=== PATIENT | female | born 1940 | race Caucasian/White ===

== ENCOUNTER 2023-08-09 00:40 | Day surgery (SDC) | payer MEDICARE, SELFPAY ==
[2023-08-07 10:11] VITALS: BMI 17.2
--- NOTE | 2023-08-07 11:50 | SUR.PREOP ---
Patient called regarding upcoming procedure. Message left on pt's voicemail regarding appointment times.
[2023-08-09 06:29] VITALS: BP 133/58; PULSE 84; RESP 19; TEMP 36.5; O2SAT 96
[2023-08-09] MEDS: LACTATED RINGERS 1,000 ML 150 ML IV CONT (06:41)
--- NOTE | 2023-08-09 07:12 | P.PNAN_ITS ---
Anes - Initial Pre Proc Eval Procedure: Operation Date: 08/09/23 07:30 Proposed Procedures p Esophagogastroduodenoscopy - Lencho Sanchez MD Date/Time: 08/09/23 07:12 Surgeon: Lencho Sanchez MD Pre Op Diagnosis: Dysphagia, unspecified Patient Data Age: 83 Gender: F Height: 1.65 m Weight: 49 kg Last Vital Signs Temp 97.7 F 08/09/23 06:29 Pulse 84 08/09/23 06:29 Resp 19 08/09/23 06:29 BP 133/58 L 08/09/23 06:29 Pulse Ox 96 08/09/23 06:29 O2 Del Method Room Air 08/09/23 06:29 Allergies Allergy/AdvReac Type Severity Reaction Status Date / Time ibuprofen Allergy Severe IMMEDIATE Verified 08/09/23 06:28 SWELLING Home Medications Medication Instructions Recorded Confirmed Type levothyroxine 100 mcg tablet 100 mcg PO DAILY 08/01/23 08/07/23 History liothyronine 5 mcg tablet (Cytomel) 15 mcg PO DAILY 08/01/23 08/07/23 History pantoprazole 40 mg tablet,delayed See Rx Instructions .Route 08/01/23 08/07/23 Rx release .COMPLEX #90 tabs midodrine 2.5 mg tablet 2.5 mg PO BID 08/07/23 08/07/23 History Patient hx anesthesia problems: none Family hx anesthesia problems: none Results Review: All pre-operative results and documents have been reviewed as part of the pre- operative evaluation. [facility] Past Medical History Medical History Other fatigue Other primary ovarian failure Social History Social History Smoking status: Never smoker Alcohol intake: never Substance use: never Substance use type: does not use Lack of Transportation: No Lack of Food: Never True Current Housing: I Have Housing Concerned About Future Housing: No Difficulty Paying Gas/Electric Bills: No Difficulty Paying for Meds: No Currently Unemployed: No Difficulty w/ Childcare or Family Care: No Living arrangements: with family Occupation/Education: retired Gender identity (if verbalized by the patient): Female Spiritual care concerns: No Anes - Eval Final PreProcedure Day of Procedure 08/09/23 07:12 Patient weight: normal Heart: regular rate and rhythm Lungs: clear to auscultation Airway: Mallampati scale class III Neurological: alert and oriented Last oral intake: >/= 8 hours ASA classification: III Emergent: no Anesthetic plan: proceed Anesthesia type and monitoring: general GIVS and standard monitoring Results Review: All pre-operative results and documents have been reviewed as part of the pre- operative evaluation. Informed Consent: The patient's anesthetic plan and its attendant risks and benefits were discussed with the patient/family/POA. Questions were solicited and answers provided to the satisfaction of the patient/family/POA.
--- NOTE | 2023-08-09 07:19 | PM.HPGS ---
History of Present Illness History of Present Illness Consent: Risks, benefits, and alternatives have been discussed and questions answered. Patient agrees to proceed with procedure. Chief complaint: Dysphagia, unspecified Narrative: Emma Villalobos is a 83 year old female here for EGD, had gastric surgery 40 year ago because ulcer , lately with regurgitation after eating sometimes without warning and dyspepsia, started using PPI that is helping, no recent EGD. Review of Systems Constitutional: Constitutional: Denies headache(s) and Denies weakness Eyes: Eyes: Denies blurry vision ENT: Reports Normal hearing present, Denies headache(s) and Denies neck pain Cardiovascular: Cardiovascular: Denies chest pain and Denies dyspnea Respiratory: Respiratory: Denies dyspnea Gastrointestinal: Gastrointestinal: Reports no additional gastrointestinal complaints Genitourinary: Genitourinary: Denies dysuria Musculoskeletal: Musculoskeletal: Denies neck pain Integumentary/Breasts: Skin/Breast: Denies dry skin Neurologic: Reports Normal hearing present, Denies headache(s) and Denies weakness Psychiatric: Psychiatric: Denies anxiety Endocrine: Endocrine: Denies change in body appearance Hematologic/Lymphatic: Hematologic/Lymphatic: Denies easy bleeding Allergic/Immunologic: Allergic/Immunologic: Denies urticaria PMFSH Past Medical History Medical History (Updated 08/09/23 @ 07:21 by Lencho Sanchez MD) Dyspepsia Other fatigue Other primary ovarian failure Regurgitation of food Social History Social History Smoking status: Never smoker Alcohol intake: never Substance use: never Substance use type: does not use Lack of Transportation: No Lack of Food: Never True Current Housing: I Have Housing Concerned About Future Housing: No Difficulty Paying Gas/Electric Bills: No Difficulty Paying for Meds: No Currently Unemployed: No Difficulty w/ Childcare or Family Care: No Living arrangements: with family Occupation/Education: retired Gender identity (if verbalized by the patient): Female Spiritual care concerns: No Meds Home Medications and Allergies Home Medications Medication Instructions Recorded Confirmed Type levothyroxine 100 mcg tablet 100 mcg PO DAILY 08/01/23 08/07/23 History liothyronine 5 mcg tablet (Cytomel) 15 mcg PO DAILY 08/01/23 08/07/23 History pantoprazole 40 mg tablet,delayed See Rx Instructions .Route 08/01/23 08/07/23 Rx release .COMPLEX #90 tabs midodrine 2.5 mg tablet 2.5 mg PO BID 08/07/23 08/07/23 History Allergies Allergy/AdvReac Type Severity Reaction Status Date / Time ibuprofen Allergy Severe IMMEDIATE Verified 08/09/23 06:28 SWELLING Vital Signs Vital Signs - 24 hr 08/09/23 06:29 Temperature 97.7 F Pulse Rate 84 Respiratory Rate 19 Blood Pressure 133/58 L Pulse Oximetry 96 Oxygen Delivery Room Air Exam Const: General: comfortable and no acute distress HENMT: Face/Nose/Sinus: Normal nares present Eyes: General: appearance normal, both eyes and all related structures Neck: Neck: no JVD Resp: Auscultation: clear to auscultation bilaterally Cardio: Rate: regular rate Rhythm: regular rhythm GI: Inspection: non-distended GI Palp: Yes Soft to palpation Skin: General skin exam: normal color Neuro: General: gait normal Speech: normal speech Extrem: General: normal to inspection Psych: Mental Status: mental status grossly normal Assessment and Plan Assessment and plan (1) Dyspepsia: Code(s): R10.13 - Epigastric pain Status: Acute Assessment and Plan: on ppi (2) Regurgitation of food: Code(s): R11.10 - Vomiting, unspecified Status: Acute Assessment and Plan: egd
[2023-08-09 07:35] VITALS: BP 143/74; PULSE 82; RESP 21; O2SAT 100
[2023-08-09 07:45] VITALS: BP 145/78; PULSE 79; RESP 16; O2SAT 99
[2023-08-09 07:55] VITALS: BP 134/74; PULSE 79; RESP 19; O2SAT 99
--- NOTE | 2023-08-30 10:21 | SUR.PHASEII ---
08/30/23 0953 patient called regarding her not feeling well since her procedure on 08/09. patient complains of vomiting frequently when she eats usually about 15 mins after eating. I inquired if she experiences vomiting with drinking fluids and she told me she hasn't been vomiting when she drinks. I asked that when she eats solid food does she feel like the food gets stuck in her throat or chest and doesn't make it all the way to her stomach. She stated that she feels like it gets stuck. I explained to her that I would go speak with Dr. Singh and either I would call her back or Dr. Singh would call her back shortly. 08/30/23 1015 called patient after speaking with Dr Singh. Spoke with patient and relayed to the patient that the doctor would like to see her in his office tomorrow. 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 I also told the patient that if she doesn't hear from Dr. Singh's office by 2 pm to call me back and I would make sure she got on the schedule for tomorrow in the clinic. Patient voiced understanding. 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 I asked the patient if she felt light headed, weak or dizzy from the vomiting she denied any of these complaints. I encouraged her to try and drink fluids if possible and she commented I tend to vomit those up. I did instruct her to go the the nearest Emergency Room if she felt like she was getting weaker, light headed, or dizzy or if she felt like she couldn't wait until tomorrow to see him in the clinic. She voiced understanding. 08/30/23 1016 Called GI clinical application manager and relayed information about the patient and Dr. Singh's request. Madisyn the chief clinical officer said they would contact her today with an appointment time for tomorrow.
== END 2023-08-09 08:13 | disposition home or self-care (01) ==
PROVIDERS: PCP Physician Assistant Medical; Visit Provider Internal Medicine Gastroenterology
PROC: 0DJ08ZZ Inspection of Upper Intestinal Tract, Via Natural or Artificial Opening Endoscopic (ICD-10-PCS; CPT 43235; principal; 2023-08-09 07:30)
DX: K29.50 Unspecified chronic gastritis without bleeding (principal); K21.00 Gastro-esophageal reflux disease with esophagitis, without bleeding; K22.2 Esophageal obstruction; K31.89 Other diseases of stomach and duodenum; Z98.890 Other specified postprocedural states
CPT/HCPCS: 43249; 43239; 88305; C1726; J2704; J7120

== ENCOUNTER 2023-09-11 01:03 | Day surgery (SDC) | payer MEDICARE, SELFPAY ==
[2023-09-04 13:38] VITALS: BMI 17.3
--- NOTE | 2023-09-08 09:49 | SUR.PREOP ---
Patient called regarding upcoming procedure. Voicemail left regarding appointment times.
[2023-09-11 09:14] VITALS: BP 143/64; PULSE 98; RESP 16; TEMP 36.7; O2SAT 100
[2023-09-11] MEDS: LACTATED RINGERS 1,000 ML 150 ML IV CONT (09:26)
--- NOTE | 2023-09-11 09:44 | WPDANESEPPF ---
Anes - Initial Pre Proc Eval Procedure: Operation Date: 09/11/23 10:30 Proposed Procedures p Esophagogastroduodenoscopy - Lencho Sanchez MD Date/Time: 09/11/23 09:44 Surgeon: Lencho Sanchez MD Pre Op Diagnosis: GERD,Esophageal obstruction Patient Data Age: 83 Gender: F Height: 1.65 m Weight: 47.7 kg Last Vital Signs Temp 98.0 F 09/11/23 09:14 Pulse 98 09/11/23 09:14 Resp 16 09/11/23 09:14 BP 143/64 H 09/11/23 09:14 Pulse Ox 100 09/11/23 09:14 O2 Del Method Room Air 09/11/23 09:14 Allergies Allergy/AdvReac Type Severity Reaction Status Date / Time ibuprofen Allergy Severe IMMEDIATE Verified 09/11/23 09:11 SWELLING Home Medications Medication Instructions Recorded Confirmed Type levothyroxine 100 mcg tablet 100 mcg PO DAILY 08/01/23 09/11/23 History liothyronine 5 mcg tablet (Cytomel) 15 mcg PO DAILY 08/01/23 09/11/23 History pantoprazole 40 mg tablet,delayed 40 mg PO BID 3 months #180 tabs 08/14/23 09/11/23 Rx release midodrine 2.5 mg tablet 2.5 mg PO TID 08/29/23 09/11/23 History sucralfate 100 mg/mL oral 1 g PO BID 08/29/23 09/11/23 History suspension (Carafate) amitriptyline 100 mg tablet 100 - 200 mg PO HS 09/04/23 09/11/23 History Patient hx anesthesia problems: none Family hx anesthesia problems: none Results Review: All pre-operative results and documents have been reviewed as part of the pre-operative evaluation. [facility], [facility] Past Medical History Medical History (Updated 08/31/23 @ 09:14 by Lencho Sanchez MD) Esophageal stricture Gastritis GERD (gastroesophageal reflux disease) Other fatigue Other primary ovarian failure Regurgitation of food Renal insufficiency Surgical History Surgical History (Updated 08/31/23 @ 09:14 by Lencho Sanchez MD) History of gastric surgery Social History Social History Smoking status: Never smoker Alcohol intake: never Substance use: never Substance use type: does not use Lack of Transportation: No Lack of Food: Never True Current Housing: I Have Housing Concerned About Future Housing: No Difficulty Paying Gas/Electric Bills: No Difficulty Paying for Meds: No Currently Unemployed: No Difficulty w/ Childcare or Family Care: No Living arrangements: with family Occupation/Education: retired Gender identity (if verbalized by the patient): Female Spiritual care concerns: No Anes - Eval Final PreProcedure Day of Procedure 09/11/23 09:44 Patient weight: normal Heart: regular rate and rhythm Lungs: clear to auscultation Airway: Mallampati scale class II Neurological: alert and oriented Last oral intake: >/= 8 hours ASA classification: III Emergent: no Anesthetic plan: proceed Anesthesia type and monitoring: general GIVS and standard monitoring Results Review: All pre-operative results and documents have been reviewed as part of the pre-operative evaluation. Informed Consent: The patient's anesthetic plan and its attendant risks and benefits were discussed with the patient/family/POA. Questions were solicited and answers provided to the satisfaction of the patient/family/POA.
--- NOTE | 2023-09-11 10:02 | WPDHPUPDATE1 ---
History and Physical Update Update Date/Time: 09/11/23 10:02 History and Physical has been reviewed, including an updated exam of the patient. There are NO changes in the patient's condition. Risks, benefits, and alternatives have been discussed and questions answered. Patient agrees to proceed with procedure.
[2023-09-11 10:20] VITALS: BP 159/76; PULSE 87; RESP 20; O2SAT 100
[2023-09-11 10:30] VITALS: BP 161/89; PULSE 86; RESP 23; O2SAT 100
[2023-09-11 10:40] VITALS: BP 155/86; PULSE 85; RESP 20; O2SAT 100
== END 2023-09-11 10:55 | disposition home or self-care (01) ==
PROVIDERS: PCP Physician Assistant Medical; Visit Provider Internal Medicine Gastroenterology
PROC: 0DJ08ZZ Inspection of Upper Intestinal Tract, Via Natural or Artificial Opening Endoscopic (ICD-10-PCS; CPT 43235; principal; 2023-09-11 10:30)
DX: K21.00 Gastro-esophageal reflux disease with esophagitis, without bleeding (principal); K22.2 Esophageal obstruction; K29.70 Gastritis, unspecified, without bleeding; N28.9 Disorder of kidney and ureter, unspecified; R11.10 Vomiting, unspecified; Z98.84 Bariatric surgery status
CPT/HCPCS: 43249; C1726; J2704; J7120

== ENCOUNTER 2023-12-16 16:51 | Emergency (ER) | payer MEDICARE, SELFPAY ==
--- NOTE | ~2023-12-16 | CT_ITS ---
CT brain wo con Ordering provider: Roman Randolph MD History: 83 years Female with . fall, head injury . Comparison: None. Technique: CT of the head without contrast. Radiation reduction technique utilized. DLP is 605.33mGy. FINDINGS: BRAIN PARENCHYMA AND CSF SPACES: Small isodense subdural hematoma is seen in the left frontal area wi th a thickness of 4 mm. Mild brain atrophy with deep white matter ischemic changes. No midline shift, mass effect or hemorrhage. The brain parenchyma and CSF spaces are otherwise normal. VISUALIZED PARANASAL SINUSES: Well aerated. MASTOIDS: Well aerated. BONES: The bones appear intact. SOFT TISSUES: Visualized nasopharynx is normal. Superficial soft tissues are normal. IMPRESSION: Left frontal isodense subdural hematoma. Deep white matter ischemic changes with mild brain atrophy. Results was notified to Dr. Roman Randolph at the time of dictation on December 16, 2023 6:03 PM Reviewed, dictated and finalized at location A.
--- NOTE | ~2023-12-16 | CT_ITS ---
CT facial & cervical spine wo Ordering provider: Roman Randolph History: . fall with head injury . Comparison: None. Technique: Thin slice axial CT of the facial bones was performed without contrast. Coronal and sagit dallin reformatted images were also obtained. Radiation reduction technique utilized. DLP is 112.62mGy. FINDINGS: PARANASAL SINUSES: Well aerated. BONES: No facial fracture including no nasal bone fracture. ORBITS AND SUPERFICIAL SOFT TISSUES: The optic globes and orbits are normal. The superficial soft tis sues are normal. VISUALIZED MASTOIDS: Well aerated. IMPRESSION: No facial fracture. CT facial & cervical spine wo Ordering provider: Roman Randolph History: . fall with head injury . Comparison: None. Technique: CT of the cervical spine was performed without contrast. Sagittal and coronal reformatted images were also obtained and reviewed. FINDINGS: VERTEBRAE: No subluxation or acute fracture. The occipital condyles are intact. 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 DISC SPACES: Narrowing of the disc spaces C3-C4, C5-C6 and C6-C7. Multilevel facet joint disease. Mul tilevel uncovertebral joint osteoarthritic changes. Narrowing of the left intervertebral foramen at the level of C3-C4, C5-C6 and C6-C7. PARASPINOUS SOFT TISSUES: Normal. Distended esophagus with gases is noted with air-fluid. Clinical co rrelation advised. IMPRESSION: No acute osseous abnormality cervical spine. Reviewed, dictated and finalized at location A. IMPRESSION: No facial fracture. CT facial & cervical spine wo Ordering provider: Roman Randolph History: . fall with head injury . Comparison: None. Technique: CT of the cervical spine was performed without contrast. Sagittal a nd coronal reformatted images were also obtained and reviewed. FINDINGS: VERTEBRAE: No subluxation or acute fracture. The occipital condyles are intact. 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 DISC SPACES: Narrowing of the disc spaces C3-C4, C5-C6 and C6-C7. Multilevel fa cet joint disease. Multilevel uncovertebral joint osteoarthritic changes. Narrowing of the left intervertebral foramen at the level of C3-C4, C5-C6 and C 6-C7. PARASPINOUS SOFT TISSUES: Normal. Distended esophagus with gases is noted with air-fluid. Clinical correlation advised.
[2023-12-16 17:03] VITALS: BP 136/62; PULSE 90; RESP 16; TEMP 36.9; O2SAT 97
--- NOTE | 2023-12-16 18:40 | ED.FALL ---
HPI - Fall General Chief Complaint: Fall <Venus Burleson PA-C - Last Filed: 12/16/23 21:01> Stated Complaint: HEAD INJURY,N/V FALLS <LETTY Colunga Last Filed: 12/16/23 21:01> Time Seen by Provider: 12/16/23 18:23 <Venus Burleson PA-C - Last Filed: 12/16/23 21:01> Source: patient and family <LETTY Colunga Last Filed: 12/16/23 21:01> Mode of arrival: ambulatory <LETTY Colunga Last Filed: 12/16/23 21:01> Limitations: no limitations <LETTY Colunga Last Filed: 12/16/23 21:01> History of Present Illness HPI Narrative: This is a 83-year-old female that presents to the emergency department after 2 falls yesterday with headache. Reports she fell forward and hit her head on the corner of a table. A couple of hours later she fell backwards in her kitchen. She does not believe she lost consciousness. She has been experiencing headaches and had some vomiting today. She is not take any anticoagulation. Reports she was experiencing some neck pain yesterday which has largely resolved. Denies focal numbness or weakness. <Venus Burleson PA-C - Last Filed: 12/16/23 21:01> Related Data Home Medications: Home Medications Medication Instructions Recorded Confirmed levothyroxine 100 mcg tablet 100 mcg PO DAILY 08/01/23 09/11/23 liothyronine 5 mcg tablet (Cytomel) 15 mcg PO DAILY 08/01/23 09/11/23 midodrine 2.5 mg tablet 2.5 mg PO TID 08/29/23 09/11/23 sucralfate 100 mg/mL oral 1 g PO BID 08/29/23 09/11/23 suspension (Carafate) amitriptyline 100 mg tablet 100 - 200 mg PO HS 09/04/23 09/11/23 <LETTY Colunga Last Filed: 12/16/23 21:01> Allergies/Adverse Reactions: Allergies Allergy/AdvReac Type Severity Reaction Status Date / Time ibuprofen Allergy Severe IMMEDIATE Verified 12/16/23 17:06 SWELLING <Venus Burleson PA-C - Last Filed: 12/16/23 21:01> Review of Systems Review of Systems: CONSTITUTIONAL: Denies fever EYES: Denies visual changes GASTROINTESTINAL: Reports vomiting MUSCULOSKELETAL: Denies back pain, joint pain, or myalgia. NEUROLOGIC: Reports headache. Denies numbness, or weakness. <Venus Burleson PA-C - Last Filed: 12/16/23 21:01> All systems reviewed & are unremarkable except as noted in HPI and below <Venus Burleson PA-C - Last Filed: 12/16/23 21:01> PMFSH Past Medical History Medical History: Medical History (Updated 12/17/23 @ 00:00 by Harleen Gonzalez) Esophageal stricture Gastritis GERD (gastroesophageal reflux disease) Other fatigue Other primary ovarian failure Regurgitation of food Renal insufficiency <LETTY Colunga Last Filed: 12/16/23 21:01> Surgical History Surgical History: Surgical History (Updated 08/31/23 @ 09:14 by Lencho Sanchez MD) History of gastric surgery <Venus Burleson PA-C - Last Filed: 12/16/23 21:01> Social History Social History: Social History Smoking status: Never smoker Alcohol intake: never Substance use: never Substance use type: does not use Lack of Transportation: No Lack of Food: Never True Current Housing: I Have Housing Concerned About Future Housing: No Difficulty Paying Gas/Electric Bills: No Difficulty Paying for Meds: No Currently Unemployed: No Difficulty w/ Childcare or Family Care: No Living arrangements: with family Occupation/Education: retired Gender identity (if verbalized by the patient): Female Spiritual care concerns: No <Venus Burleson PA-C - Last Filed: 12/16/23 21:01> Exam Narrative: GENERAL: Elderly, well-nourished, and in no acute distress. HEAD: Normocephalic. Contusion over the left frontal area and upper eyelid EYES: PERRLA and EOMI. ENT: Nares clear, no rhinorrhea or epistaxis. Mucous membranes moist. Oropharynx without tonsillar hypertrophy exudate or other lesions. Bilater
[2023-12-16 18:43] VITALS: BP 144/77; PULSE 80; RESP 16; O2SAT 96
[2023-12-16] MEDS: ACETAMINOPHEN 500 MG TABLET 1000 MG PO (19:15)
[2023-12-16 19:17] VITALS: BP 135/67; PULSE 81; RESP 20; O2SAT 99
== END 2023-12-16 20:32 | disposition short-term general hospital (02) ==
PROVIDERS: Emergency Provider Physician Assistant; PCP Physician Assistant Medical
DX: S06.5X0A Traumatic subdural hemorrhage without loss of consciousness, initial encounter (principal); R29.6 Repeated falls; N28.9 Disorder of kidney and ureter, unspecified; K21.9 Gastro-esophageal reflux disease without esophagitis; Z79.899 Other long term (current) drug therapy; W01.190A Fall on same level from slipping, tripping and stumbling with subsequent striking against furniture, initial encounter
CPT/HCPCS: 70450; 70486; 72125; 99291; A9270

== ENCOUNTER 2024-05-04 10:18 | Emergency (ER) | payer MEDICARE, SELFPAY ==
--- NOTE | ~2024-05-04 | CT_ITS ---
EXAMINATION: CT cervical spine wo con DATE: 05/04/2024 10:48 INDICATION: Fall with head injury TECHNIQUE: Computed tomography (CT) of the cervical spine was performed without intravenous contrast. Automated exposure control and iterative reconstruction technique were employed. The dose-length pro duct was 97.71 mGy-cm. COMPARISON: None FINDINGS: Severe osteoarthritis at the atlantoaxial articulation. 1-2 mm C4 on C5. Vertebral body heights are n ormal. Chronic appearing minimal anterior wedging at T1. No acute fractures. Moderate disc height los s at C3-C4, C5-C6, C6-C7 and T1-T2. Mild disc height loss at C2-C3, C4-C5 and C7-T1. Severe uncoverte bral osteoarthritis on the left at C5-C6 and bilaterally at C7-T1. Additional mild to moderate uncove rtebral osteoarthritis on the more cephalad cervical spine. There is also multilevel moderate to catalino re cervical facet osteoarthritis with fusion across the left C3-C4 facet joint. Disc bulges or disc o steophyte complexes resulting in minimal to mild central canal stenosis at C2-C3 through C6-C7. Moder ate neural foraminal stenosis on the left at C3-C4, C5-C6 and C6-C7 and on the right at C4-C5. Hypopl astic bilateral ribs at C7. Cervical soft tissues are unremarkable. Moderate biapical pleural-parench ymal scarring. IMPRESSION: 1. Moderate cervical spondylosis. No acute osseous abnormality. Reviewed, dictated and finalized at location A.
--- NOTE | ~2024-05-04 | CT_ITS ---
EXAMINATION: CT brain wo con DATE: 05/04/2024 10:48 INDICATION: Fall with head injury TECHNIQUE: Computed tomography (CT) of the head was performed without intravenous contrast. Sagittal and coronal reconstructions were performed. The mA was adjusted according to patient size. Iterative reconstruction technique was employed. The dose-length product was 605.33 mGy-cm. COMPARISON: head CT dated 12/16/2023 FINDINGS: Small chronic right frontal subdural hematoma measuring up to 4 mm in maximal thickness, new since th e prior study which is of generally low density but with scattered thin curvilinear high attenuation along the dura which could represent calcification or minimal amount of acute hemorrhage. There is hi gh attenuation likely embolization material within the right middle meningeal artery and its branches overlying the right frontal lobe. No acute infarction.. There is mild scattered white matter hypoatt enuation consistent with chronic small vessel ischemic disease. Symmetric prominence of the sulci con sistent with mild age-appropriate diffuse cerebral volume loss. Ventricles are normal and symmetric. No mass/mass effect. Changes of bilateral intraocular lens replacement. The orbits, paranasal sinuse s and mastoid air cells are normal. IMPRESSION: 1. Small chronic right frontal subdural hematoma with increased attenuation along the dura indetermin ate for calcification versus recurrent acute hemorrhage. Dr. Rowan discussed these findings with Jennyfer Das at 11:20 AM. Patient reportedly had outside institution CT 2 weeks prior and would recommen d comparison to assess for the increased density is new consistent with hemorrhage or unchanged favor ing calcification. 2. Age-related changes including mild diffuse volume loss and mild scattered white matter hypoattenua tion consistent with chronic small vessel ischemic disease. Reviewed, dictated and finalized at location A. IMPRESSION: 1. Small chronic right frontal subdural hematoma with increased attenuation vincent ng the dura indeterminate for calcification versus recurrent acute hemorrhage. Dr. Rowan discussed these findings with Dr. Das at 11:20 AM. Patient repo rtedly had outside institution CT 2 weeks prior and would recommend comparison to assess for the increased density is new consistent with hemorrhage or unchan ged favoring calcification. 2. Age-related changes including mild diffuse volume loss and mild scattered wh ite matter hypoattenuation consistent with chronic small vessel ischemic diseas e.
[2024-05-04 10:20] VITALS: BP 114/67; PULSE 92; RESP 16; TEMP 36.4; O2SAT 97
--- NOTE | 2024-05-04 10:57 | ED_ITS ---
HPI - Fall General Chief Complaint: Fall Stated Complaint: fall, struck head Time Seen by Provider: 05/04/24 10:54 Source: patient and family ( Shannan) Mode of arrival: ambulatory Limitations: no limitations History of Present Illness HPI Narrative: Patient states she was using the bathroom today and when she stood up she fell backwards striking her head on a heater. She denies any loss of consciousness and is not anticoagulation. Denies injury elsewhere. She does take oxycodone at baseline regularly and this is prescribed by pain management. She took a dose of this prior to arrival. Patient cannot recall her last tetanus shot. 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 This started Monday but has been improving over the last several days. patient states that she recently had a bilateral brain bleed but is unable to tell me the exact type or location. She believes that something might have been either quilt or clipped as she describes a procedure in which they went through vasculature in 1 of her extremities. she states that for this she recently, 2 weeks ago had a follow-up CT scan with Dr. Murillo (spelling?) through [facility]. Related Data Home Medications Medication Instructions Recorded Confirmed levothyroxine 100 mcg tablet 100 mcg PO DAILY 08/01/23 12/25/23 liothyronine 5 mcg tablet (Cytomel) 15 mcg PO DAILY 08/01/23 12/25/23 midodrine 2.5 mg tablet 2.5 mg PO TID 08/29/23 12/25/23 sucralfate 100 mg/mL oral 1 g PO BID 08/29/23 12/25/23 suspension (Carafate) Allergies Allergy/AdvReac Type Severity Reaction Status Date / Time ibuprofen Allergy Severe IMMEDIATE Verified 12/25/23 09:41 SWELLING PMFSH Past Medical History Medical History Esophageal stricture Gastritis GERD (gastroesophageal reflux disease) Hypotension Other fatigue Other primary ovarian failure Regurgitation of food Renal insufficiency Subdural hematoma left frontal, December 16, 2023, transferred to [facility] Surgical History Surgical History H/O brain surgery History of gastric surgery Social History Social History (Updated 05/05/24 @ 06:30 by Magalys Das MD) Smoking status: Never smoker Alcohol intake: never Substance use: never Substance use type: does not use Lack of Transportation: No Lack of Food: Never True Current Housing: I Have Housing Concerned About Future Housing: No Difficulty Paying Gas/Electric Bills: No Difficulty Paying for Meds: No Currently Unemployed: No Difficulty w/ Childcare or Family Care: No Living arrangements: with family Additional living arrangements comments: Shannan Occupation/Education: retired Gender identity (if verbalized by the patient): Female Spiritual care concerns: No Exam Narrative: GENERAL: Well-appearing, well-nourished, and in no acute distress. EYES: Non injected, non icteric ENT: Nares clear, no rhinorrhea or epistaxis. NECK: Supple. no tenderness to palpation of cervical spine. Bony process is midline without step-offs. CHEST: Speaking in full sentences. No respiratory distress. HEART: Regular rate and rhythm. . ABDOMEN: Soft, nondistended. EXTREMITIES: Normal range of motion. No lower extremity edema. SKIN: Warm, dry. Patient has a 1 cm abrasion along the left side of her head inferior to the jew behind the ear. Initial bleeding but bleeding well controlled. 2cm linear laceration along right parietal scalp, bleeding well controlled. NEURO: No focal deficits. Alert and oriented x3. PSYCH: Normal mood and affect. Course Vital Signs Vital signs: Vital Signs Temperature 97.6 F 05/04/24 10:20 Pulse Rate 92 05/04/24 10:20 Respiratory Rate 16 05/04/24 10:20 Blood Pressure 114/67 05/04/24 10:20 Pulse Oximetry 97 05/04/24 10:20 Oxygen Delivery Room Air 05/04/24 10:20 Temperature 97.6 F 05/04/24 10:20 Pulse Rate 92 05/04/24 10:20 Respiratory Rate 16 05/04/24 10:20 Blood Pressure 148/65 H 05/04/24 12:51 Pulse Oximetry 98 05/04/24 12:51 Oxygen Delivery Room Air 05/04/24 10:20 Procedures Laceration Laceration 1: Date: 05/04/24 Site: scalp Side (If applicable): right Size (cm): 2 Description: linear Depth: simple, single layer Local Anesthetic: none Pre-repair: wound explored and irrigated ====== Skin Level ====== Skin layer closed with: nellie Number of sutures: 4 Technique: simple, interrupted ====== Subcutaneous Layer ====== ====== Muscle Layer ====== ====== Tendon Layer ====== MDM - Fall MDM Narrative Medical decision making narrative: Patient presents after falling when she stood up after using the bathroom. She struck her head and had some bleeding. No loss of consciousness and not on anticoagulation. She has been having watery diarrhea lately which had been improving. History of a brain bleed which patient is unable to describe location or type but reviewed EMR for these details as she had initially presented here and then was transferred to [facility]. In the emergency department they are afebrile with vital signs within normal limits. Patient has an abrasion along the left which is irrigated but otherwise not amenable to Repair. Laceration of the right scalp repaired as above. Tetanus shot was updated in 2021 per review of the EMR thus will defer updating today. Patient is informed of this. I suspect that she had a mild degree of dehydration from the recent diarrhea that caused her to have orthostatic near syncope. In regards to the findings on CT, discussed with radiologist who states it favors a chronic process but can not exclude acute as no record of the interval CT scans she received At [facility] had during her care there or in the subsequent follow-up imaging particularly 2 weeks ago. Patient's previous creatinine has ranged from 0.97-1.23. Is 1.3 today thus likely reflective of a mild TYRELL. Patient can PO challenge. discussed with neurosurgeon Dr. Lam at [facility]. he reviewed the CT scan from today and compared to the CT scan patient received 2 weeks ago and states it is the same without acute change. Patient is otherwise neurovas cularly intact. discharged in stable condition and advised to follow-up with her care team. she is provided a disc of the images from today to take to subsequent appointments as needed. Advised that her nellie will need to be removed in 7 days and educated on wound care. Differential Diagnosis Differential diagnosis: Likely concussion without loss of consciousness and other (near syncope; abrasion; laceration; intracranial hemorrhage; cervical spine fracture; electrolyte abnormalities; orthostatic near syncope) Lab Data Attestation: I reviewed the patient's lab results. Lab results narrative: Normocytic anemia, thrombocytopenia, stable from previous 05/04/24 11:50 05/04/24 11:50 Labs: Lab Results 05/04/24 Range/Units 11:50 WBC 7.5 (4.5-10.0) K/mm3 RBC 3.93 L (4.2-5.4) M/mm3 Hgb 11.9 L (12.0-15.0) g/dL Hct 36.9 L (37.0-47.0) % MCV 93.9 (80-100) fl MCH 30.3 (26-34) pg MCHC 32.2 (32-36) g/dl RDW 13.3 (11.5-14.5) % Plt Count 136 L (150-375) k/mm3 MPV 11.1 H (7.4-10.4) fl Immature Gran % (Auto) 0.5 (0-0.5) % Neut % (Auto) 87.4 H (45.5-73.1) % Lymph % (Auto) 4.5 L (18.3-44.2) % Chambers % (Auto) 5.9 (2.6-8.5) % Eos % (Auto) 1.2 (0-4.4) % Baso % (Auto) 0.5 (0.2-1.2) % Lymph # (Auto) 0.34 L (0.9-3.2) K/mm3 Chambers # (Auto) 0.4 (0.1-0.6) K/mm3 Eos # (Auto) 0.1 (0-0.3) K/mm3 Baso # (Auto) 0.0 (0.0-0.1) K/mm3 Abs Immat Gran (auto) 0.04 H (0.00-0.031) K/mm3 Absolute Neuts (auto) 6.5 (1.3-6.7) K/mm3 Absolute Nucleated RBC 0.000 (0.0-0.012) K/mm3 Nucleated RBC % 0.0 (0.0-0.2) % % Immature Plt Fraction 4.3 (0.9-11.2) % PT 13.7 (11.1-14.7) Seconds INR 1.0 APTT 25.6 (22.3-36.8) Seconds Sodium 135 L (137-145) mmol/L Potassium 4.2 (3.4-5.0) mmol/L Chloride 99 (98-107) mmol/L Carbon Dioxide 27 (22-30) mmol/L Anion Gap 9 (4-12) mmol/L BUN 15 (7-17) mg/dL Creatinine 1.30 H (0.7-1.0) mg/dL Estim Creat Clear Calc 23 ml/min Estimated GFR 39 L (59 - ) Glucose 100 (65-110) mg/dL Calcium 8.4 (8.4-10.2) mg/dL Magnesium 2.0 (1.6-2.3) mg/dL Total Bilirubin 0.4 (0.2-1.3) mg/dL AST 34 (14-36) U/L ALT 17 (6-35) U/L Alkaline Phosphatase 133 H (38-126) U/L Total Protein 7.0 (6.3-8.2) g/dL Albumin 4.3 (3.5-5.1) g/dL Imaging Data Radiologist's impression: Impressions Head CT 05/04/24 11:09 IMPRESSION: 1. Small chronic right frontal subdural hematoma with increased attenuation clayton g the dura indeterminate for calcification versus recurrent acute hemorrhage. Dr. Rowan discussed these findings with Dr. Das at 11:20 AM. Patient reportedly had outside institution CT 2 weeks prior and would recommend comparison to assess for the increased density is new consistent with hemorrhage or unchanged favoring calcification. 2. Age-related changes including mild diffuse volume loss and mild scattered white matter hypoattenuation consistent with chronic small vessel ischemic disea se. Cervical Spine CT 05/04/24 11:28 IMPRESSION: 1. Moderate cervical spondylosis. No acute osseous abnormality. Discharge Plan Discharge Clinical Impression: Fall, Cervical spondylosis, Abrasion of scalp, Laceration of scalp, Stapled skin wound, Acute diarrhea, Normocytic anemia, Thrombocytopenia, Chronic subdural hematoma, Near syncope Patient Disposition: Home, Self-Care Condition: Stable Instructions: Antibiotic Form, Fall Prevention for Older Adults (ED), Acute Diarrhea (ED), Abrasion (ED), Near Syncope (ED), Staple Care (ED), Thrombocytopenia (ED), Hematoma (ED), Head Laceration (ED) Additional Instructions: Your tetanus shot was updated in 2021 so don't need to do today. The images from today were reviewed from the images you had performed 2 weeks ago by a neurosurgeon at [facility] who confirms that they are stable. [place] will need to be removed in 7 days. This can be performed with her primary care physician, at an urgent care, or in the emergency department. Return to the emergency department with any new or worsening symptoms such as pain not responding to Tylenol/acetaminophen, discharge of pus, or new neur ological symptoms. Keep the wound clean warm and dry. Warm soapy water is fine. No need to scrub, no need to apply hydrogen peroxide, and do not use Neosporin. I suspect that your recent episodes of diarrhea cause due to be mildly dehydrated which led to your fall. Your electrolytes are normal on exam today. Rest and maintain your hydration. Prescriptions: New acetaminophen 500 mg capsule 1,000 mg PO Q6H PRN (Reason: pain) Qty: 30 0RF No Action levothyroxine 100 mcg tablet 100 mcg PO DAILY liothyronine [Cytomel] 5 mcg tablet 15 mcg PO DAILY sucralfate [Carafate] 100 mg/mL suspension 1 g PO BID midodrine 2.5 mg tablet 2.5 mg PO TID pantoprazole 40 mg tablet,delayed release (DR/EC) 40 mg PO BID 90 Days Qty: 180 3RF Follow-up/Referrals: Tashia Cota PA-C [Primary Care Provider] - Time of Disposition: 12:46
[2024-05-04] MEDS: ACETAMINOPHEN 500 MG TABLET 1000 MG PO (11:23)
[2024-05-04 11:59] LABS: Basophils Percent Auto 0.5 % (0.2-1.2); Eosinophils Absolute Auto 0.1 K/mm3 (0-0.3); Eosinophils Percent Auto 1.2 % (0-4.4); Hematocrit 36.9 % (37.0-47.0); Hemoglobin 11.9 g/dL (12.0-15.0); Immature Granulocyte Absolute 0.04 K/mm3 (0.00-0.031); Immature Granulocyte Percent A 0.5 % (0-0.5); Immature Platelet Fraction Pct 4.3 % (0.9-11.2); Lymphocytes Absolute Auto 0.34 K/mm3 (0.9-3.2); Lymphocytes Percent Auto 4.5 % (18.3-44.2); Mean Corpuscular HGB Conc 32.2 g/dl (32-36); Mean Corpuscular Hemoglobin 30.3 pg (26-34); Mean Corpuscular Volume 93.9 fl (80-100); Mean Platelet Volume 11.1 fl (7.4-10.4); Monocytes Absolute Auto 0.4 K/mm3 (0.1-0.6); Monocytes Percent Auto 5.9 % (2.6-8.5); Neutrophils Absolute Auto 6.5 K/mm3 (1.3-6.7); Neutrophils Percent Auto 87.4 % (45.5-73.1); Platelet Count Result 136 k/mm3 (150-375); Red Blood Count 3.93 M/mm3 (4.2-5.4); Red Cell Distribution Width 13.3 % (11.5-14.5); White Blood Count 7.5 K/mm3 (4.5-10.0)
[2024-05-04 12:08] LABS: Partial Thromboplastin Time 25.6 Seconds (22.3-36.8); Prothrombin Time 13.7 Seconds (11.1-14.7)
[2024-05-04 12:09] LABS: Alanine Aminotransferase 17 U/L (6-35); Albumin Level 4.3 g/dL (3.5-5.1); Alkaline Phosphatase 133 U/L (38-126); Anion Gap 9 mmol/L (4-12); Aspartate Amino Transferase 34 U/L (14-36); Bilirubin,Total 0.4 mg/dL (0.2-1.3); Blood Urea Nitrogen 15 mg/dL (7-17); Calcium 8.4 mg/dL (8.4-10.2); Carbon Dioxide 27 mmol/L (22-30); Chloride 99 mmol/L (98-107); Estimated CRCL calculation 23 ml/min; Estimated Glomerular Filt Rate 39; Glucose 100 mg/dL (65-110); Potassium 4.2 mmol/L (3.4-5.0); Sodium 135 mmol/L (137-145)
[2024-05-04 12:51] VITALS: BP 148/65; O2SAT 98
== END 2024-05-04 13:07 | disposition home or self-care (01) ==
PROVIDERS: Emergency Provider Student in an Organized Health Care Education/Training Program; PCP Physician Assistant Medical
DX: S01.01XA Laceration without foreign body of scalp, initial encounter (principal); S00.01XA Abrasion of scalp, initial encounter; I62.03 Nontraumatic chronic subdural hemorrhage; R55 Syncope and collapse; R19.7 Diarrhea, unspecified; D64.9 Anemia, unspecified; D69.6 Thrombocytopenia, unspecified; N28.9 Disorder of kidney and ureter, unspecified; K21.9 Gastro-esophageal reflux disease without esophagitis; Z79.899 Other long term (current) drug therapy; M47.812 Spondylosis without myelopathy or radiculopathy, cervical region; W01.198A Fall on same level from slipping, tripping and stumbling with subsequent striking against other object, initial encounter
CPT/HCPCS: 12001; 36415; 70450; 72125; 80053; 83735; 85025; 85055; 85610; 85730; 99284; A9270

== ENCOUNTER 2024-05-07 17:00 | Inpatient (IN) | payer MEDICARE, SELFPAY ==
[2024-05-07] VITALS (8 sets, daily range): BP systolic 82–199; BP diastolic 44–111; PULSE 90–100; RESP 16–18; TEMP 36.1–36.6; O2SAT 95–100; BMI 18.4
--- NOTE | ~2024-05-07 | CT_ITS ---
History: Fall Comparison: 12/16/2023 Technique: CT of the cervical spine was performed without contrast. Sagittal and coronal reformatted images were also obtained and reviewed. TECHNIQUE: Multiple contiguous axial images of the facial bones were performed without the administra tion of intravenous contrast. Sagittal and coronal reformatted images were also obtained and reviewed DLP: 136 mGy-cm FINDINGS: Preservation of the normal curvature of the cervical spine is identified. No acute compression fractures are noted. Degenerative disease is identified at multiple levels, with osteophyte formation, disc space narrowin g and endplate changes. Degenerative disease within the atlanto odontoid joint is present with significant joint space narrow ing, subchondral sclerosis and osteophyte formation. 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 Bifid posterior spinous processes are present. Biapical scarring persists. No acute facial bone fracture is identified. The paranasal sinuses are clear. Overlying soft tissues are unremarkable. IMPRESSION: Degenerative disease, without acute displaced cervical spine fracture. No acute or subacute facial bone fracture Reviewed, dictated and finalized at location A. R OPERATOR HELPER
--- NOTE | ~2024-05-07 | XR_ITS ---
XR chest 1V portable 05/10/2024 11:11 Indication: Hypoxia Procedure: AP portable chest Comparison: 05/07/2024 Findings: Heart size normal. Pacemaker leads are stable. No focal air space disease, pulmonary edema, pleural effusion or suspected pneumothorax. Impression: 1: No acute cardiopulmonary disease. Reviewed, dictated and finalized at location B. DIE INSPECTOR Impression: 1: No acute cardiopulmonary disease.
--- NOTE | ~2024-05-07 | CT_ITS ---
History: Fall PROCEDURE: CT head without contrast. COMPARISON: 05/04/2024 TECHNIQUE: Axial imaging of the head performed from the skull base to the vertex without IV contrast. Sagittal a nd coronal reformations obtained. DLP: 605 mGy-cm FINDINGS: The ventricles are normal in size, shape and position for patient of this age. There is no mass, mass effect or midline shift. Redemonstration of a small, likely chronic right subdural hematoma measuring 4 mm in greatest dimensi on, unchanged in appearance and size since CT examination dated 05/04/2024. Visualized paranasal sinuses are clear. The mastoid air cells are well aerated. No acute displaced fractures within the overlying cranium. Impression: Stable CT examination of the head demonstrating a likely chronic right subdural hematoma unchanged in appearance and size since examination performed 3 days earlier. Reviewed, dictated and finalized at location A. FIGHTER PILOT Impression: Stable CT examination of the head demonstrating a likely chronic right subdural hematoma unchanged in appearance and size since examination performed 3 days iveth rodas.
--- NOTE | ~2024-05-07 | CT_ITS ---
EXAMINATION: CTA chest PE protocol DATE: 05/10/2024 11:32 INDICATION: Respiratory distress. TECHNIQUE: Computed tomography angiography (CTA) of the chest was performed with 100 mL Omnipaque-350 intravenous contrast timed to evaluate the pulmonary arteries. Coronal maximum intensity projection 3D-reconstructions were created by the technologist. Automated exposure control and iterative reconst ruction technique were employed. The dose-length product was 185.41 mGy-cm. COMPARISON: Chest single view 05/10/2024 FINDINGS: There is mild scarring at the lung apices. There are patchy airspace and groundglass opacit ies in the lower lobes, right middle lobe, and lingula, consistent with pneumonia. No pleural effusio n. The heart size is normal. No pericardial effusion. Calcified right hilar lymph nodes are consisten t with old granulomatous disease. There is no pulmonary embolus. There are changes of cholecystectomy . Calcifications in the spleen are consistent with old granulomatous disease. There are surgical clip s in left upper quadrant. There is a 1.9 cm cyst in the liver. There is mild thoracic spondylosis. Th ere is a chronic height loss of multiple vertebral bodies. IMPRESSION: 1. No pulmonary embolus. 2. Pneumonia in the inferior lungs bilaterally. Reviewed, dictated and finalized at location A. OR CONTROLLER
--- NOTE | ~2024-05-07 | XR_ITS ---
XR chest 1V portable Ordering provider: Ritu Ortega PA-C History: 84 years Female with . GENERALIZED WEAKNESS, COUGH . Comparison: None. FINDINGS: MEDIASTINUM: The cardiac silhouette is not enlarged. Left bipolar pacemaker. LUNGS: No infiltrates, effusions or pneumothorax. Underlying emphysematous changes. OTHER: No free air under the diaphragm. IMPRESSION: No acute cardiopulmonary pathology. Reviewed, dictated and finalized at location A. TOR CUSTODIAN
--- NOTE | 2024-05-07 17:15 | ECG_ITS ---
Test Date: 2024-05-07 17:21:53 Measurements Intervals [place] Rate: 92 P: 68 TX: 215 QRS: -72 QRSD: 173 T: 97 QT: 412 QTc: 510 Interpretive Statements ATRIAL SENSE- ELECTRONIC VENTRICULAR PACEMAKER VENTRICULAR PREMATURE COMPLEX NO FURTHER INTERPRETATION IS POSSIBLE ATYPICAL ECG No previous ECG available for comparison Electronically Signed On 05-07-2024 18:43:57 DIRECTOR OF COLLECTIONS AND ARCHIVES by Ernie Dye D.O.
--- NOTE | 2024-05-07 17:25 | ED_ITS ---
HPI - Weakness General Chief complaint: Weakness <Ritu Ortega PA-C - Last Filed: 05/08/24 00:58> Stated complaint: falls, weak <Ritu Ortega PA-C - Last Filed: 05/08/24 00:58> Time Seen by Provider: 05/07/24 17:09 <Ritu Ortega PA-C - Last Filed: 05/08/24 00:58> History of Present Illness HPI Narrative: 84-year-old female with history of hypotension, esophageal stricture, GERD, renal insufficiency, hypothyroidism, s/p pacemaker placed 2 years ago by her software engineer web services in [place] presents to the emergency department with her at bedside for generalized weakness and fall that occurred today. Patient was evaluated in our ER on 05/04/2024 after a fall and weakness. She was discharged home after she was found have a mild TYRELL likely secondary to diarrhea. Patient presents today stating that she feels progressively worse. She has been having ambulate with a walker for the past 3-4 days progressive generalized weakness. States she was in the kitchen today, felt lightheaded and fell. She hit her chin on the counter presents with a small laceration inferior to her chin. Bleeding controlled. Tdap updated in 2021 per chart review. She denies other injury or trauma from the fall. She did not lose consciousness. She is not anticoagulated. Patient admits to having several days of watery diarrhea that resolved 2 days ago. States she has had several formed bowel movement since. She denies nausea or vomiting, chest pain, shortness of breath, abdominal pain, dysuria or hematuria, chest pain or shortness of breath, vision changes, focal numbness or weakness, melena or hematochezia. She is reporting a cough with phlegm and states she has decreased taste over the past couple of days. Denies recent sick contacts. Her software engineer web services is Dr. Boom Blanco III at [facility]. <Ritu Ortega PA-C - Last Filed: 05/08/24 00:58> Related Data Home medications: Home Medications Medication Instructions Recorded Confirmed levothyroxine 100 mcg tablet 100 mcg PO DAILY 08/01/23 05/07/24 liothyronine 5 mcg tablet (Cytomel) 15 mcg PO DAILY 08/01/23 05/07/24 midodrine 2.5 mg tablet 5 mg PO TID 08/29/23 05/07/24 amitriptyline 100 mg tablet 100 mg PO HS 05/07/24 05/07/24 cyclosporine 0.05 % eye drops in a 1 drp EACH EYE HS 05/07/24 05/07/24 dropperette (Restasis) oxycodone 10 mg tablet 10 mg PO PRN PRN Pain 05/07/24 05/07/24 <Ritu Ortega PA-C - Last Filed: 05/08/24 00:58> Allergies/Adverse reactions: Allergies Allergy/AdvReac Type Severity Reaction Status Date / Time ibuprofen Allergy Severe IMMEDIATE Verified 05/07/24 17:09 SWELLING <Ritu Ortega PA-C - Last Filed: 05/08/24 00:58> Review of Systems Review of Systems: All systems reviewed & are unremarkable except as noted in HPI and below <Ritu Ortega PA-C - Last Filed: 05/08/24 00:58> [facility] Past Medical History Medical History: Medical History (Updated 05/07/24 @ 21:32 by Car Canseco MD) Esophageal stricture Gastritis GERD (gastroesophageal reflux disease) Hypotension Other fatigue Other primary ovarian failure Regurgitation of food Renal insufficiency Subdural hematoma left frontal, December 16, 2023, transferred to [facility] <Ritu Ortega PA-C - Last Filed: 05/08/24 00:58> Surgical History Surgical History: Surgical History H/O brain surgery History of gastric surgery <Ritu Ortega PA-C - Last Filed: 05/08/24 00:58> Social History Social History: Social History Smoking status: Never smoker Alcohol intake: never Substance use: never Substance use type: does not use Do You Feel Safe in your Home?: Yes Lack of Transportation: No Lack of Food: Never True Current Housing: I Have Housing Concerned About Future Housing: No Difficulty Paying Gas/Electric Bills: No Difficulty Paying for Meds: No Currently Unemployed: No Education: Bachelor's Degree Difficulty w/ Childcare or Family Care: No Living arrangements: with family Additional living arrangements comments: [place] Occupation/Education: retired Gender identity (if verbalized by the patient): Female Spiritual care concerns: No <Ritu Ortega PA-C - Last Filed: 05/08/24 00:58> Exam Narrative: GENERAL: Well-appearing, well-nourished, and in no acute distress. HEAD: Normocephalic, atraumatic. EYES: PERRLA and EOMI. ENT: Nares clear, no rhinorrhea or epistaxis. Mucous membranes moist. NECK: No midline cervical spinous tenderness, step-offs or deformities CHEST: Clear to auscultation. No respiratory distress. HEART: Regular rate and rhythm. No murmur heard. Normal peripheral pulses. ABDOMEN: Soft, nontender, nondistended, normal active bowel sounds. No rebound, guarding rigidity. No CVA tenderness. EXTREMITIES: Normal range of motion. No edema. SKIN: Less than 0.5 cm linear superficial laceration to the inferior aspect of the chin, bleeding controlled. No deep structures or foreign bodies visualized. NEURO: No focal deficits. Alert and oriented x3. Cranial nerves 2-12 intact. Strength 5/5 in BUE and BLE. Sensation intact throughout. Normal [id number]. No pronator drift. <Ritu Ortega PA-C - Last Filed: 05/08/24 00:58> Course BUSINESS OBJECTS ANALYST/PA Physician Supervision For this patient encounter, I reviewed the BUSINESS OBJECTS ANALYST or PA documentation, treatment plan, and medical decision making; and I had [id number] time with this patient. <Roman Randolph MD - Last Filed: 05/08/24 01:47> Vital Signs Vital signs: Vital Signs Temperature 97.8 F 05/07/24 17:01 Pulse Rate 100 05/07/24 17:01 Respiratory Rate 16 05/07/24 17:01 Blood Pressure 160/78 H 05/07/24 17:01 Pulse Oximetry 100 05/07/24 17:01 Oxygen Delivery Room Air 05/07/24 17:01 Temperature 97 F L 05/07/24 21:55 Pulse Rate 99 05/08/24 00:17 Respiratory Rate 18 05/07/24 21:55 Blood Pressure 186/80 H 05/07/24 21:55 Pulse Oximetry 99 05/07/24 21:55 Oxygen Delivery Room Air 05/07/24 17:01 <Ritu Ortega PA-C - Last Filed: 05/08/24 00:58> Vital Signs Temperature 97.8 F 05/07/24 17:01 Pulse Rate 100 05/07/24 17:01 Respiratory Rate 16 05/07/24 17:01 Blood Pressure 160/78 H 05/07/24 17:01 Pulse Oximetry 100 05/07/24 17:01 Oxygen Delivery Room Air 05/07/24 17:01 Temperature 97 F L 05/07/24 21:55 Pulse Rate 99 05/08/24 00:17 Respiratory Rate 18 05/07/24 21:55 Blood Pressure 186/80 H 05/07/24 21:55 Pulse Oximetry 99 05/07/24 21:55 Oxygen Delivery Room Air 05/07/24 17:01 <Roman Randolph MD - Last Filed: 05/08/24 01:47> MDM - Weakness MDM Narrative Medical decision making narrative: 84-year-old female presents to the ED from home for generalized weakness for the past approximately 1 week. Triage vitals with blood pressure 160/78, otherwise unremarkable. She is afebrile nontoxic appearing. She has no neurovascular deficits. Exam is significant for the above. CBC is without leukocytosis or anemia. Chemistry show a your baseline creatinine of 1.3 with mildly elevated BUN of 19. Her BNP is elevated at 3080, she does not acutely look volume overloaded. No echo on file. COVID, flu RSV are negative. TSH is low at less than 0.015, however free T4 is normal 1.48. Total T3 is pending. Mag is normal at 2. UA with trace ketones, no UTI. Chest x-ray is unremarkable. CT brain shows stable CT examination of the head demonstrated no likely chronic right subdural hematoma unchanged in appearance and size since examination [address] cervical spine and facial bones show no acute findings. Orthostatic vital signs are significantly positive with a blood pressure of 178/94 while supine and 82/44 while standing. Patient is likely orthostatic which is causing her weakness and lightheadedness and frequent falls. Feel she would benefit from admission for IV hydration. She and family are amenable to this. Discussed case with hospitalist, Dr. Canseco, who agrees to the plan for a dmission. <Ritu Ortega PA-C - Last Filed: 05/08/24 00:58> Lab Data Result diagrams: 05/07/24 17:28 05/07/24 17:28 <Ritu Ortega PA-C - Last Filed: 05/08/24 00:58> Labs: Lab Results 05/07/24 05/07/24 Range/Units 17:28 20:25 WBC 7.5 (4.5-10.0) K/mm3 RBC 4.46 (4.2-5.4) M/mm3 Hgb 13.2 (12.0-15.0) g/dL Hct 41.9 (37.0-47.0) % MCV 93.9 (80-100) fl MCH 29.6 (26-34) pg MCHC 31.5 L (32-36) g/dl RDW 13.5 (11.5-14.5) % Plt Count 166 (150-375) k/mm3 MPV 11.0 H (7.4-10.4) fl Immature Gran % (Auto) 0.5 (0-0.5) % Neut % (Auto) 80.3 H (45.5-73.1) % Lymph % (Auto) 9.8 L (18.3-44.2) % [place] % (Auto) 7.0 (2.6-8.5) % Eos % (Auto) 2.0 (0-4.4) % Baso % (Auto) 0.4 (0.2-1.2) % Lymph # (Auto) 0.74 L (0.9-3.2) K/mm3 [place] # (Auto) 0.5 (0.1-0.6) K/mm3 Eos # (Auto) 0.2 (0-0.3) K/mm3 Baso # (Auto) 0.0 (0.0-0.1) K/mm3 Abs Immat Gran (auto) 0.04 H (0.00-0.031) K/mm3 Absolute Neuts (auto) 6.0 (1.3-6.7) K/mm3 Absolute Nucleated RBC 0.000 (0.0-0.012) K/mm3 Nucleated RBC % 0.0 (0.0-0.2) % PT 13.0 (11.1-14.7) Seconds INR 0.9 APTT 25.1 (22.3-36.8) Seconds Sodium 135 L (137-145) mmol/L Potassium 3.7 (3.4-5.0) mmol/L Chloride 100 (98-107) mmol/L Carbon Dioxide 23 (22-30) mmol/L Anion Gap 12 (4-12) mmol/L BUN 19 H (7-17) mg/dL Creatinine 1.30 H (0.7-1.0) mg/dL Estim Creat Clear Calc Not Reportable Estimated GFR 39 L (59 - ) Glucose 133 H (65-110) mg/dL Calcium 8.8 (8.4-10.2) mg/dL Magnesium 2.0 (1.6-2.3) mg/dL Total Bilirubin 0.3 (0.2-1.3) mg/dL AST 27 (14-36) U/L ALT 13 (6-35) U/L Alkaline Phosphatase 120 (38-126) U/L Troponin I < 0.012 (0.000-0.034) ng/mL NT-Pro-B Natriuret Pep 3080 H (19.9-100) pg/mL Total Protein 8.0 (6.3-8.2) g/dL Albumin 4.6 (3.5-5.1) g/dL TSH (Reflex) < 0.015 L (0.465-4.68) uIU/mL Free T4 1.48 (0.78-2.19) ng/dL Total T3 1.26 (0.97-1.69) NG/ML Urine Color Yellow (Yellow) Urine Appearance Clear (Clear) Urine pH 6.5 (5.0-9.0) Ur Specific [place] 1.007 (1.001-1.035) Urine Protein Negative (Negative) mg/dL Urine Glucose (UA) Negative (Negative) mg/dL Urine Ketones Trace H (Negative) mg/dL Ur Blood (Man) Negative (Negative) Urine Nitrate Negative (Negative) Urine Bilirubin Negative (Negative) Urine Urobilinogen 0.2 (<2.0) mg/dL Leukocyte Esterase Rfl Negative (Negative) DANE/UL Influenza A (RT-PCR) Negative (Negative) Influenza B (RT-PCR) Negative (Negative) RSV (RT-PCR) Negative (Negative) SARS-CoV-2 RNA (RT-PCR) Negative (Negative) <Ritu Ortega PA-C - Last Filed: 05/08/24 00:58> Lab Results 05/07/24 05/07/24 Range/Units 17:28 20:25 WBC 7.5 (4.5-10.0) K/mm3 RBC 4.46 (4.2-5.4) M/mm3 Hgb 13.2 (12.0-15.0) g/dL Hct 41.9 (37.0-47.0) % MCV 93.9 (80-100) fl MCH 29.6 (26-34) pg MCHC 31.5 L (32-36) g/dl RDW 13.5 (11.5-14.5) % Plt Count 166 (150-375) k/mm3 MPV 11.0 H (7.4-10.4) fl Immature Gran % (Auto) 0.5 (0-0.5) % Neut % (Auto) 80.3 H (45.5-73.1) % Lymph % (Auto) 9.8 L (18.3-44.2) % [place] % (Auto) 7.0 (2.6-8.5) % Eos % (Auto) 2.0 (0-4.4) % Baso % (Auto) 0.4 (0.2-1.2) % Lymph # (Auto) 0.74 L (0.9-3.2) K/mm3 [place] # (Auto) 0.5 (0.1-0.6) K/mm3 Eos # (Auto) 0.2 (0-0.3) K/mm3 Baso # (Auto) 0.0 (0.0-0.1) K/mm3 Abs Immat Gran (auto) 0.04 H (0.00-0.031) K/mm3 Absolute Neuts (auto) 6.0 (1.3-6.7) K/mm3 Absolute Nucleated RBC 0.000 (0.0-0.012) K/mm3 Nucleated RBC % 0.0 (0.0-0.2) % PT 13.0 (11.1-14.7) Seconds INR 0.9 APTT 25.1 (22.3-36.8) Seconds Sodium 135 L (137-145) mmol/L Potassium 3.7 (3.4-5.0) mmol/L Chloride 100 (98-107) mmol/L Carbon Dioxide 23 (22-30) mmol/L Anion Gap 12 (4-12) mmol/L BUN 19 H (7-17) mg/dL Creatinine 1.30 H (0.7-1.0) mg/dL Estim Creat Clear Calc Not Reportable Estimated GFR 39 L (59 - ) Glucose 133 H (65-110) mg/dL Calcium 8.8 (8.4-10.2) mg/dL Magnesium 2.0 (1.6-2.3) mg/dL Total Bilirubin 0.3 (0.2-1.3) mg/dL AST 27 (14-36) U/L ALT 13 (6-35) U/L Alkaline Phosphatase 120 (38-126) U/L Troponin I < 0.012 (0.000-0.034) ng/mL NT-Pro-B Natriuret Pep 3080 H (19.9-100) pg/mL Total Protein 8.0 (6.3-8.2) g/dL Albumin 4.6 (3.5-5.1) g/dL TSH (Reflex) < 0.015 L (0.465-4.68) uIU/mL Free T4 1.48 (0.78-2.19) ng/dL Total T3 1.26 (0.97-1.69) NG/ML Urine Color Yellow (Yellow) Urine Appearance Clear (Clear) Urine pH 6.5 (5.0-9.0) Ur Specific [place] 1.007 (1.001-1.035) Urine Protein Negative (Negative) mg/dL Urine Glucose (UA) Negative (Negative) mg/dL Urine Ketones Trace H (Negative) mg/dL Ur Blood (Man) Negative (Negative) Urine Nitrate Negative (Negative) Urine Bilirubin Negative (Negative) Urine Urobilinogen 0.2 (<2.0) mg/dL Leukocyte Esterase Rfl Negative (Negative) DANE/UL Influenza A (RT-PCR) Negative (Negative) Influenza B (RT-PCR) Negative (Negative) RSV (RT-PCR) Negative (Negative) SARS-CoV-2 RNA (RT-PCR) Negative (Negative) <Roman Randolph MD - Last Filed: 05/08/24 01:47> Discharge Plan Discharge Clinical Impression: Orthostatic hypotension, Generalized weakness, Adult failure to thrive, Frequent falls <Ritu Ortega PA-C - Last Filed: 05/08/24 00:58> Patient Disposition: Still a Patient <Ritu Ortega PA-C - Last Filed: 05/08/24 00:58> Condition: Stable <Ritu Ortega PA-C - Last Filed: 05/08/24 00:58>
[2024-05-07 17:36] LABS: Basophils Percent Auto 0.4 % (0.2-1.2); Eosinophils Absolute Auto 0.2 K/mm3 (0-0.3); Hematocrit 41.9 % (37.0-47.0); Hemoglobin 13.2 g/dL (12.0-15.0); Immature Granulocyte Absolute 0.04 K/mm3 (0.00-0.031); Immature Granulocyte Percent A 0.5 % (0-0.5); Lymphocytes Absolute Auto 0.74 K/mm3 (0.9-3.2); Lymphocytes Percent Auto 9.8 % (18.3-44.2); Mean Corpuscular HGB Conc 31.5 g/dl (32-36); Mean Corpuscular Hemoglobin 29.6 pg (26-34); Mean Corpuscular Volume 93.9 fl (80-100); Monocytes Absolute Auto 0.5 K/mm3 (0.1-0.6); Neutrophils Percent Auto 80.3 % (45.5-73.1); Platelet Count Result 166 k/mm3 (150-375); Red Blood Count 4.46 M/mm3 (4.2-5.4); Red Cell Distribution Width 13.5 % (11.5-14.5); White Blood Count 7.5 K/mm3 (4.5-10.0)
[2024-05-07 17:48] LABS: Alanine Aminotransferase 13 U/L (6-35); Albumin Level 4.6 g/dL (3.5-5.1); Alkaline Phosphatase 120 U/L (38-126); Anion Gap 12 mmol/L (4-12); Aspartate Amino Transferase 27 U/L (14-36); Bilirubin,Total 0.3 mg/dL (0.2-1.3); Blood Urea Nitrogen 19 mg/dL (7-17); Calcium 8.8 mg/dL (8.4-10.2); Carbon Dioxide 23 mmol/L (22-30); Chloride 100 mmol/L (98-107); Estimated Glomerular Filt Rate 39; Glucose 133 mg/dL (65-110); INR 0.9; Potassium 3.7 mmol/L (3.4-5.0); Sodium 135 mmol/L (137-145)
[2024-05-07 17:49] LABS: Partial Thromboplastin Time 25.1 Seconds (22.3-36.8)
[2024-05-07] MEDS: SODIUM CHLORIDE 0.9% IV 1,000 ML 999 ML IV CONT (17:54)
[2024-05-07 17:58] LABS: NT Pro B Type Natriuretic Pept 3080 pg/mL (19.9-100); Troponin I < 0.012 ng/mL (0.000-0.034)
--- NOTE | 2024-05-07 18:12 | PC.NURSE ---
PADMINI benavides notified of positive orthostatic VS. at bedside states pt is on Mitodrin for this problem, feed mixer helper doubled pt dosage today.
[2024-05-07 18:14] LABS: Influenza A QL RT-PCR Negative (Negative); Influenza B QL RT-PCR Negative (Negative); RSV RNA, RT-PCR Negative (Negative); SARS-CoV-2 RNA PCR Negative (Negative)
[2024-05-07 18:36] LABS: Thyroid Stimulating Hormone Reflex < 0.015 uIU/mL (0.465-4.68)
--- NOTE | 2024-05-07 19:20 | PC.NURSE ---
Pt. aware provider would like a urine sample. Pt on pure wick and fluids completed. Pt states she doesn't have the urge to urinate but she will try.
[2024-05-07 19:38] LABS: Free T4 Free Thyroxine Reflex 1.48 ng/dL (0.78-2.19)
--- NOTE | 2024-05-07 19:49 | PC.NURSE ---
Pt c/o of a headache and requesting medication. PADMINI Chaney notified.
[2024-05-07] MEDS: ACETAMINOPHEN 500 MG TABLET 1000 MG PO ×2 (19:55→23:16)
[2024-05-07 20:18] LABS: Total Triiodothyronine (T3) 1.26 NG/ML (0.97-1.69)
[2024-05-07 20:29] LABS: Add Urine Microscopic? NO; Appearance Urine Clear (Clear); Bilirubin Urine Negative (Negative); Blood Urine Negative (Negative); Color Urine Yellow (Yellow); Glucose Urine UA Negative (Negative); Ketones Urine Trace mg/dL (Negative); Leukocyte Esterase Ur Negative LEU/UL (Negative); Nitrate Urine Negative (Negative); Protein Urine Negative (Negative); Specific Grav Ur 1.007 (1.001-1.035); Urobilinogen Urine 0.2 mg/dL (<2.0); pH Urine 6.5 (5.0-9.0)
--- NOTE | 2024-05-07 20:42 | PM.IMHP ---
H&P: HPI History of Present Illness Date/Time: 05/07/24 20:42 Chief Complaint: recurrent falls Narrative: This is an 84-year-old female with past medical history significant for esophageal stricture, dysphagia, subdural hematoma, hypothyroidism, orthostatic hypotension. patient presents to the emergency room for a 2nd time after having a fall at home patient has been very weak, has had lightheadedness, has been regurgitate, states a weird taste in her mouth, has had poor per orally intake. Preliminary workup ER was significant for creatinine of 1.3 patient's orthostatic were significant in the emergency room. Patient denies any fevers, rigors, chills. Patient has been admitted for further evaluation management and treatment. XR chest 1V portable Ordering provider: Ritu Ortega PA-C History: 84 years Female with . GENERALIZED WEAKNESS, COUGH . Comparison: None. FINDINGS: MEDIASTINUM: The cardiac silhouette is not enlarged. Left bipolar pacemaker. LUNGS: No infiltrates, effusions or pneumothorax. Underlying emphysematous changes. OTHER: No free air under the diaphragm. IMPRESSION: No acute cardiopulmonary pathology. History: Fall PROCEDURE: CT head without contrast. COMPARISON: 05/04/2024 TECHNIQUE: Axial imaging of the head performed from the skull base to the vertex without IV contrast. Sagittal and coronal reformations obtained. DLP: 605 mGy-cm FINDINGS: The ventricles are normal in size, shape and position for patient of this age. There is no mass, mass effect or midline shift. Redemonstration of a small, likely chronic right subdural hematoma measuring 4 mm in greatest dimension, unchanged in appearance and size since CT examination dated 05/04/2024. Visualized paranasal sinuses are clear. The mastoid air cells are well aerated. No acute displaced fractures within the overlying cranium. Impression: Stable CT examination of the head demonstrating a likely chronic right subdural hematoma unchanged in appearance and size since examination performed 3 days earlier. History: Fall Comparison: 12/16/2023 Technique: CT of the cervical spine was performed without contrast. Sagittal and coronal reformatted images were also obtained and reviewed. TECHNIQUE: Multiple contiguous axial images of the facial bones were performed without the administration of intravenous contrast. Sagittal and coronal reformatted images were also obtained and reviewed DLP: 136 mGy-cm FINDINGS: Preservation of the normal curvature of the cervical spine is identified. No acute compression fractures are noted. Degenerative disease is identified at multiple levels, with osteophyte formation, disc space narrowing and endplate changes. Degenerative disease within the atlanto odontoid joint is present with significant joint space narrowing, subchondral sclerosis and osteophyte formation. 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 Bifid posterior spinous processes are present. Biapical scarring persists. No acute facial bone fracture is identified. The paranasal sinuses are clear. Overlying soft tissues are unremarkable. IMPRESSION: Degenerative disease, without acute displaced cervical spine fracture. No acute or subacute facial bone fracture Review of Systems Review of Systems: generalized weakness, recurrent falls, dysphagia, regurgitation. [facility] Past Medical History Medical History (Updated 05/07/24 @ 21:32 by Car Canseco MD) Esophageal stricture Gastritis GERD (gastroesophageal reflux disease) Hypotension Other fatigue Other primary ovarian failure Regurgitation of food Renal insufficiency Subdural hematoma left frontal, December 16, 2023, transferred to [facility] Surgical History Surgical History H/O brain surgery History of gastric surgery Social History Social History Smoking status: Never smoker Alcohol intake: never Substance use: never Substance use type: does not use Lack of Transportation: No Lack of Food: Never True Current Housing: I Have Housing Concerned About Future Housing: No Difficulty Paying Gas/Electric Bills: No Difficulty Paying for Meds: No Currently Unemployed: No Difficulty w/ Childcare or Family Care: No Living arrangements: with family Additional living arrangements comments: [place] Occupation/Education: retired Gender identity (if verbalized by the patient): Female Spiritual care concerns: No Meds Home Medications and Allergies Home Medications Medication Instructions Recorded Confirmed Type levothyroxine 100 mcg tablet 100 mcg PO DAILY 08/01/23 05/07/24 History liothyronine 5 mcg tablet (Cytomel) 15 mcg PO DAILY 08/01/23 05/07/24 History pantoprazole 40 mg tablet,delayed 40 mg PO BID 3 months #180 tabs 08/14/23 05/07/24 Rx release midodrine 2.5 mg tablet 5 mg PO TID 08/29/23 05/07/24 History acetaminophen 500 mg capsule 1,000 mg PO Q6H PRN pain #30 caps 05/04/24 05/07/24 Rx amitriptyline 100 mg tablet 100 mg PO HS 05/07/24 05/07/24 History cyclosporine 0.05 % eye drops in a 1 drp EACH EYE HS 05/07/24 05/07/24 History dropperette (Restasis) oxycodone 10 mg tablet 10 mg PO PRN PRN Pain 05/07/24 05/07/24 History Allergies Allergy/AdvReac Type Severity Reaction Status Date / Time ibuprofen Allergy Severe IMMEDIATE Verified 05/07/24 17:09 SWELLING Vital Signs Vital Signs - 24 hr 05/07/24 17:01 05/07/24 17:12 05/07/24 17:47 Temperature 97.8 F Pulse Rate 100 95 91 Respiratory Rate 16 Blood Pressure 160/78 H 178/94 H Pulse Oximetry 100 Oxygen Delivery Room Air 05/07/24 17:49 05/07/24 17:52 05/07/24 19:21 Temperature Pulse Rate 90 98 99 Respiratory Rate 16 Blood Pressure 163/111 H 82/44 L 199/91 H Pulse Oximetry 95 Oxygen Delivery 05/07/24 19:41 Temperature Pulse Rate 93 Respiratory Rate 16 Blood Pressure 195/94 H Pulse Oximetry 99 Oxygen Delivery Exam Narrative: lying in stretcher. Const: General: comfortable, no acute distress, well developed, alert, awake and thin Nutritional Appearance: thin Orientation/consciousness: patient oriented x3 HENMT: Head: normal to inspection, normocephalic and atraumatic Ears: hearing grossly normal bilaterally Face/Nose/Sinus: normal facial exam Face and sinus: normal facial exam Eyes: General: appearance normal, both eyes and all related structures Pupils: Equal, round and reactive pupils present EOM: EOMs intact bilaterally Neck: Neck: full ROM, no lymphadenopathy and no JVD Thyroid: thyroid normal Lymphatic: no lymphadenopathy noted Resp: Effort & Inspection: normal respiratory effort and able to speak in complete sentences Auscultation: clear to auscultation bilaterally Cardio: Jugular venous distension: no JVD Rate: regular rate Rhythm: regular rhythm Heart sounds: S1 normal heart sound present and S2 normal heart sound present GI: GI Palp: Yes Soft to palpation and Yes No hepatosplenomegaly present : General: Yes deferred Skin: Rashes: no rashes Wounds: no wounds Neuro: General: patient oriented x3 and CN's II-XI intact bilaterally Cranial nerves: Yes CN's II-XII intact bilaterally and Yes Equal, round and reactive pupils present Cognition (Neuro): normal cognition Speech: normal speech Gait exam (Neuro): Unable to assess gait Motor exam (neuro): 5/5 motor strength present throughout Extrem: General: normal to inspection, full ROM, no joint enlargement and no pedal edema H&P: Results Labs Labs: Short CBC 05/07/24 Range/Units 17:28 WBC 7.5 (4.5-10.0) K/mm3 Hgb 13.2 (12.0-15.0) g/dL Hct 41.9 (37.0-47.0) % Plt Count 166 (150-375) k/mm3 BMP 05/07/24 17:28 Sodium 135 L Potassium 3.7 Chloride 100 Carbon Dioxide 23 BUN 19 H Creatinine 1.30 H Glucose 133 H Calcium 8.8 Cardiac Enzymes 05/07/24 Range/Units 17:28 Troponin I < 0.012 (0.000-0.034) ng/mL Liver Function 05/07/24 Range/Units 17:28 Total Bilirubin 0.3 (0.2-1.3) mg/dL AST 27 (14-36) U/L ALT 13 (6-35) U/L Alkaline Phosphatase 120 (38-126) U/L Albumin 4.6 (3.5-5.1) g/dL Urine 05/07/24 Range/Units 20:25 Urine Color Yellow (Yellow) Urine Appearance Clear (Clear) Urine pH 6.5 (5.0-9.0) Ur Specific [place] 1.007 (1.001-1.035) Urine Protein Negative (Negative) mg/dL Urine Glucose (UA) Negative (Negative) mg/dL Assessment and Plan Assessment and plan (1) Orthostatic hypotension: Code(s): I95.1 - Orthostatic hypotension Status: Acute (2) Generalized weakness: Code(s): R53.1 - Weakness Status: Acute (3) Adult failure to thrive: Code(s): R62.7 - Adult failure to thrive Status: Acute (4) Frequent falls: Code(s): R29.6 - Repeated falls Status: Acute (5) Subdural hematoma: Code(s): S06.5XAA - Traumatic subdural hemorrhage with loss of consciousness status unknown, initial encounter Status: Acute (6) TYRELL (acute kidney injury): Code(s): N17.9 - Acute kidney failure, unspecified Status: Acute (7) Esophageal stricture: Code(s): K22.2 - Esophageal obstruction Status: Acute (8) GERD (gastroesophageal reflux disease): Code(s): K21.9 - Gastro-esophageal reflux disease without esophagitis Status: Acute Hospitalist MIPS Advance Care Plan I have confirmed that the patient's Advanced Care Plan is present, code status is documented, or surrogate decision maker is listed in patient medical record.: Yes Medication Reconciliation I have utilized all available resources to obtain, update and review the patients current medications (includes all prescriptions, OTC, herbals, cannabis, and nutritional supplements).: Yes
[2024-05-07] MEDS: PANTOPRAZOLE 40 MG TABLET PO (23:17)
[2024-05-07] MEDS: AMITRIPTYLINE HCL 25 MG TABLET 100 MG PO (23:17)
[2024-05-07] MEDS: ONDANSETRON INJ 4 MG/2 ML VIAL IV PUSH (23:29)
[2024-05-08] VITALS (15 sets, daily range): BP systolic 88–198; BP diastolic 54–96; PULSE 88–106; RESP 17–20; TEMP 35.8–36.3; O2SAT 97–100; BMI 18.4
--- NOTE | 2024-05-08 | ECHO_ITS ---
Patient Info Name: Emma Villalobos Age: 84 years : 1940 Gender: Female Ht: 65 in Wt: 111 lbs BSA: 1.51 m2 HR: 100 bpm BP: 178 / 79 mmHg Technical Quality: Fair Exam Date: 05/08/2024 3:02 PM Exam Location: Echo Lab Patient Status: Inpatient Admit Date: 05/08/2024 Staff Ordering Physician: Earnest Gerber NP Tool Maker Bench: Kisha Cortez [facility] Attending Provider: Car Canseco MD Referring Physician: Zabrina ACEVEDO; Exam Type: CA echo doppler color flow Study Info Indications R42 - Dizziness and giddiness Complete two-dimensional, color flow and Doppler transthoracic echocardiogram is performed. Summary 1. Complete two-dimensional, color flow and Doppler transthoracic echocardiogram is performed. 2. The left ventricle is normal in size and systolic function. 3. Abnormal septal motion consistent with a bundle branch block. 4. The mitral valve is sclerotic. There is mild mitral regurgitation. Left Ventricle The left ventricle is normal in size and systolic function. Abnormal septal motion consistent with a bundle branch block. Right Ventricle The right ventricle is normal in size and systolic function. Left Atria The left atrium is normal in size. Right Atria The right atrium is normal in size. Aortic Valve The aortic valve is trileaflet and opens well. There is no aortic regurgitation. Pulmonic Valve The pulmonic valve is grossly normal. There is trace pulmonic valve regurgitation. Mitral Valve The mitral valve is sclerotic. There is mild mitral regurgitation. Tricuspid Valve The tricuspid valve is normal. There is trace tricuspid regurgitation. Pericardium/Pleural The pericardium is not well visualized in the subcostal view however in other views there were no pericardial effusion noted. Inferior Vena Cava Inferior vena cava is not well visualized. Aorta The aortic root diameter measures 2.0 cm. Left Ventricular Outflow Tract Name Value Normal LVOT 2D LVOT Diameter 2.0 cm LVOT Doppler LVOT Peak Gradient 3 mmHg LVOT Mean Gradient 1 mmHg LVOT VTI 15 cm LVOT VTI/AV VTI Ratio 0.7 LVOT Stroke Volume 47 ml LVOT CO 4.2 l/min LVOT CI 2.8 l/min/m2 Pulmonic Valve Name Value Normal PV Doppler PV Peak Gradient 2 mmHg PV Regurgitation Doppler HI Peak End Diastolic Velocity 192 cm/s Tricuspid Valve Name Value Normal TV Regurgitation Doppler TR Peak Velocity 282 cm/s TR Peak Gradient 31 mmHg Aorta Name Value Normal Ascending Aorta Ao Root Diameter (MM) 2.0 cm Ao Root Diam Index (MM) 1.3 cm/m2 Aortic Valve Name Value Normal AV Doppler AV Peak Velocity 120 cm/s AV Peak Gradient 6 mmHg AV Mean Gradient 3 mmHg AV VTI 22 cm AV Area (Cont Eq VTI) 2.2 cm2 >=3.0 AV Area (Cont Eq [place]) 2.1 cm2 AV Regurgitation 2D LVOT Area 3.1 cm2 Ventricles Name Value Normal LV Dimensions 2D/MM IVS Diastolic Thickness (2D) 0.9 cm 0.6-1.0 IVS Diastole Thickness (MM) 0.8 cm 0.6-0.9 LVID Diastole (2D) 4.3 cm 3.8-5.2 LVID Diastole (MM) 5.3 cm 3.8-5.2 LVIW Diastolic Thickness (2D) 0.9 cm 0.6-0.9 LVIW Diastolic Thickness (MM) 0.7 cm 0.6-0.9 LVID Systole (2D) 3.5 cm 2.2-3.5 LVID Systole (MM) 3.5 cm 2.2-3.5 LVOT Diameter 2.0 cm LV Mass (2D Cubed) 116.17 g 67.00-162.00 LV Mass Index (2D Cubed) 77 g/m2 43-95 Relative Wall Thickness (2D) 0.40 LV Mass (MM Cubed) 131.57 g 67.00-162.00 LV Mass Index (MM Cubed) 87 g/m2 43-95 Relative Wall Thickness (MM) 0.25 LV Fractional Shortening/Ejection Fraction 2D/MM LV Fractional Shortening (2D) 19 % 27-45 LV Fractional Shortening (MM) 33 % 27-45 LV EF (MM Teicholz) 62 % 54-74 LV EF (2D Teicholz) 40 % 54-74 LV Diastolic Volume (4C MOD) 79 ml LV EF (4C MOD) 51 % LV Diastolic Volume (2C MOD) 65 ml LV EF (2C MOD) 44 % LV Diastolic Volume (BP MOD) 76 ml 46-106 LV Diastolic Volume Index (BP MOD) 50 ml/m2 29-61 LV Systolic Volume (BP MOD) 37 ml 14-42 LV Systolic Volume Index (BP MOD) 25 ml/m2 8-24 LV EF (BP MOD) 50 % 54-74 LV Diastolic Length (4C) 7.5 cm LV Systolic Length (4C) 6.9 cm LV Stroke Volume (4C MOD) 41 ml Atria Name Value Normal LA Dimensions LA Dimension (MM) 3.5 cm 2.7-3.8 LA Volume (4C A-L) 29 ml LA Volume (BP A-L) 34 ml RA Dimensions RA Area (4C) 11.2 cm2 <=18.0 Report Signatures
[2024-05-08] MEDS: LEVOTHYROXINE SODIUM 100 MCG TABLET PO (06:02)
--- NOTE | 2024-05-08 07:24 | P.CONGI_ITS ---
Assessment and Plan Assessment and plan (1) Esophageal stricture: Code(s): K22.2 - Esophageal obstruction Status: Acute Assessment and Plan: will procedure with, had esophageal stricture dilated last time, also gastritis with previous billroth surgery which is contributing to her symptoms egd now (2) Gastritis: Code(s): K29.70 - Gastritis, unspecified, without bleeding Status: Acute Assessment and Plan: on ppi daily (3) History of Billroth I operation: Code(s): Z98.890 - Other specified postprocedural states Status: Acute (4) Regurgitation of food: Code(s): R11.10 - Vomiting, unspecified Status: Acute Assessment and Plan: probably related to previous surgery assess with egd (5) Orthostatic hypotension: Code(s): I95.1 - Orthostatic hypotension Status: Acute Assessment and Plan: treated (6) TYRELL (acute kidney injury): Code(s): N17.9 - Acute kidney failure, unspecified Status: Acute (7) Adult failure to thrive: Code(s): R62.7 - Adult failure to thrive Status: Acute (8) Frequent falls: Code(s): R29.6 - Repeated falls Status: Acute GI Consult Note Consult date/time: 05/08/24 07:24 Reason for consult: dysphagia HPI: Emma Villalobos is a 84 year old female with history of dysphagia and previous EGD 09/2023, s/p Billroth surgery and esophageal stricture dilated up to 15mm, bx showed gastritis and reflux esophagitis. She had gastric surgery and vagotomy 40 year ago because ulcer , indication of EGD was regurgitation after eating sometimes without warning and dyspepsia. This time admitted after she had a fall at home and says that lately has been feeling weaker than normal, also lightheadedness. Similar complain of regurgitation and different taste in her mouth with poor appetite and feeling sometimes food getting stuck. She had orthostatic hypotension and treated. Review of Systems Constitutional: Constitutional: Reports weakness Eyes: Eyes: Denies blurry vision ENT: Reports dysphagia Cardiovascular: Cardiovascular: Denies chest pain Respiratory: Respiratory: Denies cough Gastrointestinal: Gastrointestinal: Reports no additional gastrointestinal co mplaints Genitourinary: Genitourinary: Denies dysuria Musculoskeletal: Musculoskeletal: Denies neck pain Integumentary/Breasts: Skin/Breast: Denies rash Neurologic: Denies confusion Psychiatric: Psychiatric: Denies behavioral changes COUNT INCLUDES THE [facility] Past Medical History Medical History (Updated 05/07/24 @ 21:32 by Car Canseco MD) Esophageal stricture Gastritis GERD (gastroesophageal reflux disease) Hypotension Other fatigue Other primary ovarian failure Regurgitation of food Renal insufficiency Subdural hematoma left frontal, December 16, 2023, transferred [facility] Surgical History Surgical History (Updated 05/08/24 @ 14:33 by Lencho Sanchez MD) H/O brain surgery History of Billroth I operation History of gastric surgery Social History Social History Smoking status: Never smoker Alcohol intake: never Substance use: never Substance use type: does not use Do You Feel Safe in your Home?: Yes Lack of Transportation: No Lack of Food: Never True Current Housing: I Have Housing Concerned About Future Housing: No Difficulty Paying Gas/Electric Bills: No Difficulty Paying for Meds: No Currently Unemployed: No Education: Bachelor's Degree Difficulty w/ Childcare or Family Care: No Living arrangements: with family Additional living arrangements comments: [place] Occupation/Education: retired Gender identity (if verbalized by the patient): Female Spiritual care concerns: No Meds Home Medications and Allergies Home Medications Medication Instructions Recorded Confirmed Type levothyroxine 100 mcg tablet 100 mcg PO DAILY 08/01/23 05/08/24 History liothyronine 5 mcg tablet (Cytomel) 15 mcg PO DAILY 08/01/23 05/08/24 History pantoprazole 40 mg tablet,delayed 40 mg PO BID 3 months #180 tabs 08/14/23 05/08/24 Rx release midodrine 2.5 mg tablet 5 mg PO TID 08/29/23 05/08/24 History acetaminophen 500 mg capsule 1,000 mg PO Q6H PRN pain #30 caps 05/04/24 05/08/24 Rx amitriptyline 100 mg tablet 100 mg PO HS 05/07/24 05/08/24 History cyclosporine 0.05 % eye drops in a 1 drp EACH EYE HS 05/07/24 05/08/24 History dropperette (Restasis) oxycodone 10 mg tablet 10 mg PO PRN PRN Pain 05/07/24 05/08/24 History Allergies Allergy/AdvReac Type Severity Reaction Status Date / Time ibuprofen Allergy Severe IMMEDIATE Verified 05/08/24 13:31 SWELLING Vital Signs Vital Signs - 24 hr 05/07/24 17:01 05/07/24 17:12 05/07/24 17:47 Temperature 97.8 F Pulse Rate 100 95 91 Respiratory Rate 16 Blood Pressure 160/78 H 178/94 H Pulse Oximetry 100 Oxygen Delivery Room Air 05/07/24 17:49 05/07/24 17:52 05/07/24 19:21 Temperature Pulse Rate 90 98 99 Respiratory Rate 16 Blood Pressure 163/111 H 82/44 L 199/91 H Pulse Oximetry 95 Oxygen Delivery 05/07/24 19:41 05/07/24 21:55 05/08/24 00:17 Temperature 97 F L Pulse Rate 93 92 99 Respiratory Rate 16 18 Blood Pressure 195/94 H 186/80 H Pulse Oximetry 99 99 Oxygen Delivery 05/08/24 04:00 05/08/24 06:00 Temperature 97.1 F L Pulse Rate 104 H 102 H Respiratory Rate 18 Blood Pressure 178/79 H Pulse Oximetry 100 Oxygen Delivery Exam Const: General: comfortable and no acute distress HENMT: Face/Nose/Sinus: Normal nares present Eyes: General: appearance normal, both eyes and all related structures Neck: Neck: no JVD Resp: Auscultation: clear to auscultation bilaterally Cardio: Rate: regular rate Rhythm: regular rhythm GI: Inspection: non-distended GI Palp: Yes Soft to palpation and No Tenderness to palpation present (GI) Auscultation: normal bowel sounds Skin: General skin exam: normal color Neuro: Speech: normal speech Motor exam (neuro): 5/5 motor strength present throughout Extrem: General: normal to inspection Psych: Mental Status: mental status grossly normal Results Labs 05/07/24 17:28 05/07/24 17:28 Labs: Short CBC 05/07/24 Range/Units 17:28 WBC 7.5 (4.5-10.0) K/mm3 Hgb 13.2 (12.0-15.0) g/dL Hct 41.9 (37.0-47.0) % Plt Count 166 (150-375) k/mm3 BMP 05/07/24 17:28 Sodium 135 L Potassium 3.7 Chloride 100 Carbon Dioxide 23 BUN 19 H Creatinine 1.30 H Glucose 133 H Calcium 8.8 Cardiac Enzymes 05/07/24 Range/Units 17:28 Troponin I < 0.012 (0.000-0.034) ng/mL Liver Function 05/07/24 Range/Units 17:28 Total Bilirubin 0.3 (0.2-1.3) mg/dL AST 27 (14-36) U/L ALT 13 (6-35) U/L Alkaline Phosphatase 120 (38-126) U/L Albumin 4.6 (3.5-5.1) g/dL Urine 05/07/24 Range/Units 20:25 Urine Color Yellow (Yellow) Urine Appearance Clear (Clear) Urine pH 6.5 (5.0-9.0) Ur Specific [place] 1.007 (1.001-1.035) Urine Protein Negative (Negative) mg/dL Urine Glucose (UA) Negative (Negative) mg/dL
[2024-05-08] MEDS: MIDODRINE HCL 2.5 MG TABLET 5 MG PO ×3 (08:10→18:12)
[2024-05-08] MEDS: LIOTHYRONINE SODIUM 5 MCG TABLET 15 MCG PO (08:10)
[2024-05-08] MEDS: PANTOPRAZOLE 40 MG TABLET PO ×2 (08:10→18:12)
[2024-05-08] MEDS: ONDANSETRON INJ 4 MG/2 ML VIAL IV PUSH (10:27)
[2024-05-08] MEDS: MECLIZINE HCL 12.5 MG TABLET PO ×4 (11:09→20:15)
--- NOTE | 2024-05-08 12:06 | P.PNAN_ITS ---
Anes - Initial Pre Proc Eval Procedure: Operation Date: 05/08/24 15:00 Proposed Procedures p Esophagogastroduodenoscopy - Lencho Sanchez MD Date/Time: 05/08/24 12:06 Surgeon: Car Canseco MD Pre Op Diagnosis: Failure to thrive, Orthostatic hypotension Patient Data Age: 84 Gender: F Height: 1.65 m Weight: 50.4 kg Last Vital Signs Temp 36.2 C L 05/08/24 06:00 Pulse 106 H 05/08/24 08:04 Resp 18 05/08/24 06:00 BP 178/79 H 05/08/24 06:00 Pulse Ox 100 05/08/24 06:00 O2 Del Method Room Air 05/08/24 08:10 Allergies Allergy/AdvReac Type Severity Reaction Status Date / Time ibuprofen Allergy Severe IMMEDIATE Verified 05/07/24 17:09 SWELLING Home Medications Medication Instructions Recorded Confirmed Type levothyroxine 100 mcg tablet 100 mcg PO DAILY 08/01/23 05/07/24 History liothyronine 5 mcg tablet (Cytomel) 15 mcg PO DAILY 08/01/23 05/07/24 History pantoprazole 40 mg tablet,delayed 40 mg PO BID 3 months #180 tabs 08/14/23 05/07/24 Rx release midodrine 2.5 mg tablet 5 mg PO TID 08/29/23 05/07/24 History acetaminophen 500 mg capsule 1,000 mg PO Q6H PRN pain #30 caps 05/04/24 05/07/24 Rx amitriptyline 100 mg tablet 100 mg PO HS 05/07/24 05/07/24 History cyclosporine 0.05 % eye drops in a 1 drp EACH EYE HS 05/07/24 05/07/24 History dropperette (Restasis) oxycodone 10 mg tablet 10 mg PO PRN PRN Pain 05/07/24 05/07/24 History Laboratory Tests 05/07/24 05/07/24 17:28 20:25 WBC 7.5 K/mm3 (4.5-10.0) RBC 4.46 M/mm3 (4.2-5.4) Hgb 13.2 g/dL (12.0-15.0) Hct 41.9 % (37.0-47.0) MCV 93.9 fl (80-100) MCH 29.6 pg (26-34) MCHC 31.5 L g/dl (32-36) RDW 13.5 % (11.5-14.5) Plt Count 166 k/mm3 (150-375) MPV 11.0 H fl (7.4-10.4) Immature Gran % (Auto) 0.5 % (0-0.5) Neut % (Auto) 80.3 H % (45.5-73.1) Lymph % (Auto) 9.8 L % (18.3-44.2) [place] % (Auto) 7.0 % (2.6-8.5) Eos % (Auto) 2.0 % (0-4.4) Baso % (Auto) 0.4 % (0.2-1.2) Lymph # (Auto) 0.74 L K/mm3 (0.9-3.2) [place] # (Auto) 0.5 K/mm3 (0.1-0.6) Eos # (Auto) 0.2 K/mm3 (0-0.3) Baso # (Auto) 0.0 K/mm3 (0.0-0.1) Abs Immat Gran (auto) 0.04 H K/mm3 (0.00-0.031) Absolute Neuts (auto) 6.0 K/mm3 (1.3-6.7) Absolute Nucleated RBC 0.000 K/mm3 (0.0-0.012) Nucleated RBC % 0.0 % (0.0-0.2) PT 13.0 Seconds (11.1-14.7) INR 0.9 APTT 25.1 Seconds (22.3-36.8) Sodium 135 L mmol/L (137-145) Potassium 3.7 mmol/L (3.4-5.0) Chloride 100 mmol/L (98-107) Carbon Dioxide 23 mmol/L (22-30) Anion Gap 12 mmol/L (4-12) BUN 19 H mg/dL (7-17) Creatinine 1.30 H mg/dL (0.7-1.0) Estim Creat Clear Calc Not Reportable Estimated GFR 39 L (59 - ) Glucose 133 H mg/dL (65-110) Calcium 8.8 mg/dL (8.4-10.2) Magnesium 2.0 mg/dL (1.6-2.3) Total Bilirubin 0.3 mg/dL (0.2-1.3) AST 27 U/L (14-36) ALT 13 U/L (6-35) Alkaline Phosphatase 120 U/L (38-126) Troponin I < 0.012 ng/mL (0.000-0.034) NT-Pro-B Natriuret Pep 3080 H pg/mL (19.9-100) Total Protein 8.0 g/dL (6.3-8.2) Albumin 4.6 g/dL (3.5-5.1) TSH (Reflex) < 0.015 L uIU/mL (0.465-4.68) Free T4 1.48 ng/dL (0.78-2.19) Total T3 1.26 NG/ML (0.97-1.69) Urine Color Yellow (Yellow) Urine Appearance Clear (Clear) Urine pH 6.5 (5.0-9.0) Ur Specific [place] 1.007 (1.001-1.035) Urine Protein Negative mg/dL (Negative) Urine Glucose (UA) Negative mg/dL (Negative) Urine Ketones Trace H mg/dL (Negative) Ur Blood (Man) Negative (Negative) Urine Nitrate Negative (Negative) Urine Bilirubin Negative (Negative) Urine Urobilinogen 0.2 mg/dL (<2.0) Leukocyte Esterase Rfl Negative DANE/UL (Negative) Influenza A (RT-PCR) Negative (Negative) Influenza B (RT-PCR) Negative (Negative) RSV (RT-PCR) Negative (Negative) SARS-CoV-2 RNA (RT-PCR) Negative (Negative) Patient hx anesthesia problems: none Family hx anesthesia problems: none Results Review: All pre-operative results and documents have been reviewed as part of the pre- operative evaluation. [facility] Past Medical History Medical History (Updated 05/07/24 @ 21:32 by Car Canseco MD) Esophageal stricture Gastritis GERD (gastroesophageal reflux disease) Hypotension Other fatigue Other primary ovarian failure Regurgitation of food Renal insufficiency Subdural hematoma left frontal, December 16, 2023, [facility] Surgical History Surgical History H/O brain surgery History of gastric surgery Social History Social History Smoking status: Never smoker Alcohol intake: never Substance use: never Substance use type: does not use Do You Feel Safe in your Home?: Yes Lack of Transportation: No Lack of Food: Never True Current Housing: I Have Housing Concerned About Future Housing: No Difficulty Paying Gas/Electric Bills: No Difficulty Paying for Meds: No Currently Unemployed: No Education: Bachelor's Degree Difficulty w/ Childcare or Family Care: No Living arrangements: with family Additional living arrangements comments: [place] Occupation/Education: retired Gender identity (if verbalized by the patient): Female Spiritual care concerns: No Anes - Eval Final PreProcedure Day of Procedure 05/08/24 12:06 Patient weight: thin Heart: regular rate and rhythm Lungs: clear to auscultation Airway: Mallampati scale class 1 Neurological: alert and oriented Last oral intake: >/= 8 hours ASA classification: III Anesthesia type and monitoring: general GIVS and standard monitoring Results Review: All pre-operative results and documents have been reviewed as part of the pre- operative evaluation. Informed Consent: The patient's anesthetic plan and its attendant risks and benefits were discussed with the patient/family/POA. Questions were solicited and answers provided to the satisfaction of the patient/family/POA.
--- NOTE | 2024-05-08 12:51 | PM.IMPN ---
Progress Note: A&P Assessment and Plan (1) Orthostatic hypotension: Code(s): I95.1 - Orthostatic hypotension Status: Acute Assessment and Plan: - Unclear etiology. - Possibly cardiac vs neuro vs meds vs other. - Orthostatic vitals +ve in the ER. - CT head negative for acute. - ECHO ordered. - Started on meclizine. - PT eval and treatment. - Fall precautions. (2) Generalized weakness: Code(s): R53.1 - Weakness Status: Acute Assessment and Plan: - Possibly related to above. - Mgt as above. - PT eval and teatment. - Fall precautions. (3) Adult failure to thrive: Code(s): R62.7 - Adult failure to thrive Status: Acute Assessment and Plan: - Possibly related to poor PO intake due to food regurgitation. - Scheduled for EGD later today. - Wrong Address Clerk consult post EGD. - Nutritional supplements. - Encourage with meals. (4) Frequent falls: Code(s): R29.6 - Repeated falls Status: Acute Assessment and Plan: - Possibly related to dizziness. - Mgt as # 1. - Fall precautions. - PT eval and treatment. (5) Regurgitation of food: Code(s): R11.10 - Vomiting, unspecified Status: Acute Assessment and Plan: - Hx of peptic stenosis. - Scheduled for EGD later today. - NPO for now. - Appreciate GI assistance. (6) Subdural hematoma: Code(s): S06.5XAA - Traumatic subdural hemorrhage with loss of consciousness status unknown, initial encounter Status: Acute Assessment and Plan: - Stable. - Avoid anticoagulants and anti-platelets for now. (7) TYRELL (acute kidney injury): Code(s): N17.9 - Acute kidney failure, unspecified Status: Acute Assessment and Plan: - Cr 1.3. - Appears baseline. - Monitor closely for now. (8) Esophageal stricture: Code(s): K22.2 - Esophageal obstruction Status: Acute Assessment and Plan: - Hx of peptic stenosis. - Scheduled for EGD later today. - NPO for now. - Appreciate GI assistance. (9) GERD (gastroesophageal reflux disease): Code(s): K21.9 - Gastro-esophageal reflux disease without esophagitis Status: Acute Assessment and Plan: - Resume protonix with diet. Plan Scheduled for EGD later today to evaluate for food regurgitation. Further w/u on dizziness pending. PT eval and treatment. Fall precautions. Time Spent With Patient Time with patient: 25 - 35 minutes Subjective Date/time seen: 05/08/24 12:51 Patient on bedrest stating she still feels dizzy and can't stand up due to dizziness. Patient also reporting bad taste in her mouth due to food regurgitation. Pt states she just eats normal food ok and she doesn't feel like it's stuck in her throat but briefly later on everything comes back out, so she has been unable to tolerate meals at home. She also reports fluids coming back up after she drinks. She reports falling about 2 weeks ago and per medical records, she was seen here and later transferred to [facility] for subdural hematoma mgt. Pt had another fall about 3 days ago and head CT remained the same, with head CT on this admission also same post fall. Interval history: She reports falling about 2 weeks ago and per medical records, she was seen here and later transferred to [facility] for subdural hematoma mgt. Pt had another fall about 3 days ago and head CT remained the same, with head CT on this admission also same post fall. She also reports bad taste on her mouth and episodes of food regurgitation. She had an EGD with dilatation about 6 months ago. Review of Systems Review of Systems: All systems reviewed & are unremarkable except as noted in HPI and below Exam Extrem: Other: HEENT: [place] to Right occipital region, dried laceration to left occipital region, PERRL, EOM, moist mucus membranes. Neck: Supple. Lungs: Clear bilaterally. Heart: RRR, no murmurs. Abdomen: Soft, non-tender, non-distended, +ve bowel sounds. Extremities: Warm and dry with no lesions. Neuro: Well oriented. No focal deficits noted. Psych: Pleasant and co-operative. Objective Data Vital Signs Vital Signs: Vital Signs - 24 hr 05/07/24 17:01 05/07/24 17:12 05/07/24 17:47 Temperature 97.8 F Pulse Rate 100 95 91 Respiratory Rate 16 Blood Pressure 160/78 H 178/94 H Pulse Oximetry 100 Oxygen Delivery Room Air 05/07/24 17:49 05/07/24 17:52 05/07/24 19:21 Temperature Pulse Rate 90 98 99 Respiratory Rate 16 Blood Pressure 163/111 H 82/44 L 199/91 H Pulse Oximetry 95 Oxygen Delivery 05/07/24 19:41 05/07/24 21:55 05/08/24 00:17 Temperature 97 F L Pulse Rate 93 92 99 Respiratory Rate 16 18 Blood Pressure 195/94 H 186/80 H Pulse Oximetry 99 99 Oxygen Delivery 05/08/24 04:00 05/08/24 06:00 05/08/24 08:10 Temperature 97.1 F L Pulse Rate 104 H 102 H Respiratory Rate 18 Blood Pressure 178/79 H Pulse Oximetry 100 Oxygen Delivery Room Air 05/08/24 08:04 05/08/24 12:04 Temperature Pulse Rate 106 H 100 Respiratory Rate Blood Pressure Pulse Oximetry Oxygen Delivery Intake/Output Intake/Output: Intake & Output 05/05/24 05/06/24 05/07/24 05/08/24 23:59 23:59 23:59 23:59 Intake Total 1000 200 Output Total 350 Balance 650 200 Meds/Results Medications: Active Medications Generic Name Dose Route Start Last Admin Trade Name Alvaradoq PRN Reason Stop Dose Admin Acetaminophen 1,000 mg 05/07/24 21:21 05/07/24 23:16 Acetaminophen 500 Mg Tablet PO 1,000 mg Q6H PRN Administration PAIN RATED 1-3 Amitriptyline HCl 100 mg 05/07/24 22:10 05/07/24 23:17 Amitriptyline Hcl 25 Mg Tablet PO 100 mg HS JOHANNY Administration Cyclosporine 1 drop 05/08/24 21:00 Cyclosporine 0.4 Ml Ophth Solution EACH EYE HS JOHANNY Levothyroxine Sodium 100 mcg 05/08/24 06:30 05/08/24 06:02 Levothyroxine Sodium 100 Mcg Tablet PO 100 mcg DAILY@0630 JOHANNY Administration Liothyronine Sodium 15 mcg 05/08/24 09:00 05/08/24 08:10 Liothyronine Sodium 5 Mcg Tablet PO 15 mcg DAILY JOHANNY Administration Meclizine HCl 12.5 mg 05/08/24 10:40 05/08/24 11:09 Meclizine Hcl 12.5 Mg Tablet PO 12.5 mg QID JOHANNY Administration Midodrine 5 mg 05/08/24 09:00 05/08/24 08:10 Midodrine Hcl 2.5 Mg Tablet PO 5 mg TID JOHANNY Administration Ondansetron HCl 4 mg 05/07/24 23:23 05/08/24 10:27 Ondansetron Inj 4 Mg/2 Ml Vial IV PUSH 4 mg Q4H PRN Administration Nausea And Vomiting Oxycodone HCl 10 mg 05/08/24 11:13 Oxycodone Hcl (*Crx) 5 Mg Tab Ir PO Q6HR PRN Pain 4-10 Pantoprazole Sodium 40 mg 05/07/24 21:30 05/08/24 08:10 Pantoprazole 40 Mg Tablet PO 40 mg BID JOHANNY Administration Perflutren Lipid Microsphere 0 ml 05/08/24 10:37 Perflutren Lipid Microspheres 1.5 Ml Vial Diluted To 10 Ml Total Volume IV PUSH 05/11/24 10:38 ONCE PRN adequate visualization Protocol Radiology Results: ITS Impressions Chest X-Ray 05/07/24 17:37 IMPRESSION: No acute cardiopulmonary pathology. 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 Head/Cervical Spine/Facial Bones CT 05/07/24 18:51 IMPRESSION: Degenerative disease, without acute displaced cervical spine fracture. No acute or subacute facial bone fracture Labs Labs: Laboratory Results - last 24 hr 05/07/24 05/07/24 17:28 20:25 WBC 7.5 RBC 4.46 Hgb 13.2 Hct 41.9 MCV 93.9 MCH 29.6 MCHC 31.5 L RDW 13.5 Plt Count 166 MPV 11.0 H Immature Gran % (Auto) 0.5 Neut % (Auto) 80.3 H Lymph % (Auto) 9.8 L [place] % (Auto) 7.0 Eos % (Auto) 2.0 Baso % (Auto) 0.4 Lymph # (Auto) 0.74 L [place] # (Auto) 0.5 Eos # (Auto) 0.2 Baso # (Auto) 0.0 Abs Immat Gran (auto) 0.04 H Absolute Neuts (auto) 6.0 Absolute Nucleated RBC 0.000 Nucleated RBC % 0.0 PT 13.0 INR 0.9 APTT 25.1 Sodium 135 L Potassium 3.7 Chloride 100 Carbon Dioxide 23 Anion Gap 12 BUN 19 H Creatinine 1.30 H Estim Creat Clear Calc Not Reportable Estimated GFR 39 L Glucose 133 H Calcium 8.8 Magnesium 2.0 Total Bilirubin 0.3 AST 27 ALT 13 Alkaline Phosphatase 120 Troponin I < 0.012 NT-Pro-B Natriuret Pep 3080 H Total Protein 8.0 Albumin 4.6 TSH (Reflex) < 0.015 L Free T4 1.48 Total T3 1.26 Urine Color Yellow Urine Appearance Clear Urine pH 6.5 Ur Specific [place] 1.007 Urine Protein Negative Urine Glucose (UA) Negative Urine Ketones Trace H Ur Blood (Man) Negative Urine Nitrate Negative Urine Bilirubin Negative Urine Urobilinogen 0.2 Leukocyte Esterase Rfl Negative Influenza A (RT-PCR) Negative Influenza B (RT-PCR) Negative RSV (RT-PCR) Negative SARS-CoV-2 RNA (RT-PCR) Negative Quality VTE Prophylaxis VTE prophylaxis: mechanical ordered If No VTE Prophylaxis Answer both mechanical and pharmacologic: Reason no pharmacologic proph: medical contraindication (Recent Hx of subdural hematoma) Hospitalist MIPS Advance Care Plan I have confirmed that the patient's Advanced Care Plan is present, code status is documented, or surrogate decision maker is listed in patient medical record.: Yes Medication Reconciliation I have utilized all available resources to obtain, update and review the patients current medications (includes all prescriptions, OTC, herbals, cannabis, and nutritional supplements).: Yes
--- NOTE | 2024-05-08 13:32 | P.PNAN_ITS ---
Anes - Eval Final PreProcedure Day of Procedure 05/08/24 13:32 Patient weight: thin Heart: regular rate and rhythm Lungs: clear to auscultation Airway: Mallampati scale class 1 Neurological: alert and oriented Last oral intake: >/= 8 hours ASA classification: IV Emergent: no Anesthetic plan: proceed Anesthesia type and monitoring: general GIVS and standard monitoring Results Review: All pre-operative results and documents have been reviewed as part of the pre- operative evaluation. Informed Consent: The patient's anesthetic plan and its attendant risks and benefits were discussed with the patient/family/POA. Questions were solicited and answers provided to the satisfaction of the patient/family/POA.
[2024-05-08] MEDS: LACTATED RINGERS 1,000 ML 150 ML IV CONT (13:33)
[2024-05-08] MEDS: BENZOCAINE (*SP) 60 ML SPRAY CAN (HURRICAINE) 1 SPRAY MUCOUS MEM (14:02)
--- NOTE | 2024-05-08 14:50 | PCOTNOTE ---
Attempted OT evaluation. RN denied OT eval due to pt returning from EGD and presenting with severe orthostatic hypotension- not medically appropriate for OT at this time.
[2024-05-08] MEDS: AMITRIPTYLINE HCL 25 MG TABLET 100 MG PO (20:15)
[2024-05-08] MEDS: cycloSPORINE 0.4 ML OPHTH SOLUTION 1 DROP EACH EYE (20:16)
[2024-05-08] MEDS: ACETAMINOPHEN 500 MG TABLET 1000 MG PO (23:58)
[2024-05-09] VITALS (11 sets, daily range): BP systolic 91–182; BP diastolic 62–93; PULSE 93–108; RESP 17–18; TEMP 36.2–36.6; O2SAT 97–100
[2024-05-09] MEDS: LEVOTHYROXINE SODIUM 100 MCG TABLET PO (05:01)
[2024-05-09] MEDS: MECLIZINE HCL 12.5 MG TABLET PO (08:27)
[2024-05-09] MEDS: LIOTHYRONINE SODIUM 5 MCG TABLET 15 MCG PO (08:27)
[2024-05-09] MEDS: PANTOPRAZOLE 40 MG TABLET PO ×2 (08:27→16:56)
[2024-05-09] MEDS: MIDODRINE HCL 2.5 MG TABLET 5 MG PO ×2 (08:27→12:34)
--- NOTE | 2024-05-09 08:38 | P.PNIM_ITS ---
Progress Note: A&P Assessment and Plan (1) Orthostatic hypotension: Code(s): I95.1 - Orthostatic hypotension Status: Acute Assessment and Plan: - Unclear etiology. - Possibly cardiac vs neuro vs meds vs other. - Orthostatic vitals +ve in the ER and on 01/11/2024 - CT head negative for acute. - ECHO ordered. pending - PT eval and treatment. cancer at this time due to severe hypotension - Fall precautions. midodrine increased (2) Generalized weakness: Code(s): R53.1 - Weakness Status: Acute Assessment and Plan: - Possibly related to above. - Mgt as above. - PT eval and teatment. - Fall precautions. (3) Adult failure to thrive: Code(s): R62.7 - Adult failure to thrive Status: Acute Assessment and Plan: - Possibly related to poor PO intake due to food regurgitation. - Scheduled for EGD later today. - Graining Machine Operator consult post EGD. - Nutritional supplements. - Encourage with meals. patient may benefit Megace (4) Frequent falls: Code(s): R29.6 - Repeated falls Status: Acute Assessment and Plan: - Possibly related to dizziness. - Mgt as # 1. - Fall precautions. - PT eval and treatment. (5) Regurgitation of food: Code(s): R11.10 - Vomiting, unspecified Status: Acute Assessment and Plan: - Hx of peptic stenosis. - EGD on 05/08/2024 with esophageal dilation regular diet (6) Subdural hematoma: Code(s): S06.5XAA - Traumatic subdural hemorrhage with loss of consciousness status unknown, initial encounter Status: Acute Assessment and Plan: - Stable. - Avoid anticoagulants and anti-platelets for now. (7) TYRELL (acute kidney injury): Code(s): N17.9 - Acute kidney failure, unspecified Status: Acute Assessment and Plan: - Cr 1.3. - Appears baseline. - Monitor closely for now. (8) Esophageal stricture: Code(s): K22.2 - Esophageal obstruction Status: Acute Assessment and Plan: - Hx of peptic stenosis. - 05/08/2024 EGD with esophageal dilation - Appreciate GI assistance. (9) GERD (gastroesophageal reflux disease): Code(s): K21.9 - Gastro-esophageal reflux disease without esophagitis Status: Acute Assessment and Plan: - Resume protonix with diet. Plan Further w/u on dizziness pending. PT eval and treatment. Fall precautions. Time Spent With Patient Time with patient: Greater than 35 minutes Subjective Date/time seen: 05/09/24 08:38 Interval history: She reports falling about 2 weeks ago a transferred to [facility] for subdural hematoma mgt. Pt had another fall about [address] and head CT remained the same, with head CT on this admission also same post fall. She also reports bad taste on her mouth and episodes of food regurgitation. She had an EGD with dilatation about 6 months ago. EGD 05/08/2024 with dilation of esophagus, patient states that she feels her swallowing is better, echocardiogram results pending, severe orthostatic hypotension this morning, gentle IV hydration, Ensure shakes, calorie count Review of Systems Review of Systems: generalized weakness, recurrent falls, dysphagia, regurgitation. All systems reviewed & are unremarkable except as noted in HPI and below Exam Narrative: lying in stretcher. Const: General: comfortable, no acute distress, well developed, alert, awake and thin Nutritional Appearance: thin Orientation/consciousness: patient oriented x3 HENMT: Head: normal to inspection, normocephalic and atraumatic Ears: hearing grossly normal bilaterally Face/Nose/Sinus: normal facial exam Face and sinus: normal facial exam Eyes: General: appearance normal, both eyes and all related structures Pupils: Equal, round and reactive pupils present EOM: EOMs intact bilaterally Neck: Neck: full ROM, no lymphadenopathy and no JVD Thyroid: thyroid normal Lymphatic: no lymphadenopathy noted Resp: Effort & Inspection: normal respiratory effort and able to speak in complete sentences Auscultation: clear to auscultation bilaterally Cardio: Jugular venous distension: no JVD Rate: regular rate Rhythm: regular rhythm Heart sounds: S1 normal heart sound present and S2 normal heart sound present : General: Yes deferred Skin: Rashes: no rashes Wounds: no wounds Neuro: General: patient oriented x3, CN's II-XI intact bilaterally and Unable to assess gait Cranial nerves: Yes CN's II-XII intact bilaterally and Yes Equal, round and reactive pupils present Cognition (Neuro): normal cognition Speech: normal speech Gait exam (Neuro): Normal gait present and Unable to assess gait Motor exam (neuro): 5/5 motor strength present throughout Extrem: General: normal to inspection, full ROM, no joint enlargement and no pedal edema Other: HEENT: [place] to Right occipital region, dried laceration to left occipital region, PERRL, EOM, moist mucus membranes. Neck: Supple. Lungs: Clear bilaterally. Heart: RRR, no murmurs. Abdomen: Soft, non-tender, non-distended, +ve bowel sounds. Extremities: Warm and dry with no lesions. Neuro: Well oriented. No focal deficits noted. Psych: Pleasant and co-operative. Objective Data Vital Signs Vital Signs: Vital Signs - 24 hr 05/08/24 12:04 05/08/24 13:04 05/08/24 13:05 Temperature Pulse Rate 100 99 100 Respiratory Rate 18 Blood Pressure 198/91 H 185/89 H Pulse Oximetry 100 Oxygen Delivery 05/08/24 13:05 05/08/24 13:20 05/08/24 14:09 Temperature 96.5 F L Pulse Rate 105 H 101 H 92 Respiratory Rate 20 17 Blood Pressure 88/54 L 184/85 H 155/71 H Pulse Oximetry 100 100 Oxygen Delivery Room Air Room Air 05/08/24 14:19 05/08/24 14:29 05/08/24 16:04 Temperature Pulse Rate 88 88 99 Respiratory Rate 20 20 Blood Pressure 172/88 H 188/96 H Pulse Oximetry 100 100 Oxygen Delivery Room Air Room Air 05/08/24 20:33 05/08/24 20:00 05/08/24 20:00 Temperature 97.3 F L Pulse Rate 105 H 105 H Respiratory Rate 18 Blood Pressure 180/85 H Pulse Oximetry 98 Oxygen Delivery Room Air 05/09/24 00:00 05/09/24 04:00 05/09/24 05:47 Temperature 97.2 F L Pulse Rate 106 H 101 H 103 H Respiratory Rate 18 Blood Pressure 144/68 H Pulse Oximetry 100 Oxygen Delivery Intake/Output Intake/Output: Intake & Output 05/06/24 05/07/24 05/08/24 05/09/24 23:59 23:59 23:59 23:59 Intake Total 1000 1090 250 Output Total 350 Balance 650 1090 250 Meds/Results Medications: Active Medications Generic Name Dose Route Start Last Admin Trade Name Freq PRN Reason Stop Dose Admin Acetaminophen 1,000 mg 05/07/24 21:21 11/06/24 23:58 Acetaminophen 500 Mg Tablet PO 1,000 mg Q6H PRN Administration PAIN RATED 1-3 Amitriptyline HCl 100 mg 05/07/24 22:10 05/08/24 20:15 Amitriptyline Hcl 25 Mg Tablet PO 100 mg HS JOHANNY Administration Benzocaine 1 lozenge 05/08/24 18:44 Benzocaine/Menthol (*Bkc) 18 Ea Lozenge PO PRN PRN Sore Throat/tongue Cyclosporine 1 drop 05/08/24 21:00 05/08/24 20:16 Cyclosporine 0.4 Ml Ophth Solution EACH EYE 1 drop HS JOHANNY Administration Levothyroxine Sodium 100 mcg 05/08/24 06:30 05/09/24 05:01 Levothyroxine Sodium 100 Mcg Tablet PO 100 mcg DAILY@0630 JOHANNY Administration Liothyronine Sodium 15 mcg 05/08/24 09:00 05/09/24 08:27 Liothyronine Sodium 5 Mcg Tablet PO 15 mcg DAILY JOHANNY Administration Meclizine HCl 12.5 mg 05/08/24 10:40 05/09/24 08:27 Meclizine Hcl 12.5 Mg Tablet PO 12.5 mg QID JOHANNY Administration Midodrine 5 mg 05/08/24 09:00 05/09/24 08:27 Midodrine Hcl 2.5 Mg Tablet PO 5 mg TID JOHANNY Administration Ondansetron HCl 4 mg 05/07/24 23:23 05/08/24 10:27 Ondansetron Inj 4 Mg/2 Ml Vial IV PUSH 4 mg Q4H PRN Administration Nausea And Vomiting Oxycodone HCl 10 mg 05/08/24 11:13 Oxycodone Hcl (*Crx) 5 Mg Tab Ir PO Q6HR PRN Pain 4-10 Pantoprazole Sodium 40 mg 05/07/24 21:30 05/09/24 08:27 Pantoprazole 40 Mg Tablet PO 40 mg BID JOHANNY Administration Perflutren Lipid Microsphere 0 ml 05/08/24 10:37 Perflutren Lipid Microspheres 1.5 Ml Vial Diluted To 10 Ml Total Volume IV P [facility] 05/11/24 10:38 ONCE PRN adequate visualization Protocol Radiology Results: ITS Impressions Chest X-Ray 05/07/24 17:37 IMPRESSION: No acute cardiopulmonary pathology. 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 Head/Cervical Spine/Facial Bones CT 05/07/24 18:51 IMPRESSION: Degenerative disease, without acute displaced cervical spine fracture. No acute or subacute facial bone fracture Quality VTE Prophylaxis VTE prophylaxis: mechanical ordered Hospitalist MIPS Advance Care Plan I have confirmed that the patient's Advanced Care Plan is present, code status is documented, or surrogate decision maker is listed in patient medical record.: Yes Medication Reconciliation I have utilized all available resources to obtain, update and review the patients current medications (includes all prescriptions, OTC, herbals, cannabis, and nutritional supplements).: Yes
--- NOTE | 2024-05-09 10:23 | WPDANESPN ---
Anes - Prog Note Post-Op Date/Time: 05/09/24 10:23 Cardiovascular status: normal Respiratory status: normal Airway patency: baseline Mental status: baseline Post-Op hydration status: normal Vital Signs: Last Vital Signs Temp 36.2 C L 05/09/24 05:47 Pulse 103 H 05/09/24 05:47 Resp 18 05/09/24 05:47 BP 144/68 H 05/09/24 05:47 Pulse Ox 100 05/09/24 05:47 O2 Del Method Room Air 05/08/24 20:00 Pain Score (VAS): 0/10 I/O: Intake & Output 05/08/24 05/09/24 05/09/24 23:59 07:59 15:59 Intake Total 440 250 120 Balance 440 250 120 Laboratory Tests 05/07/24 17:28 05/07/24 17:28 Post-procedural complaints: none Patient Feedback: Patient satisfied with anesthetic care.
--- NOTE | 2024-05-09 13:14 | PCDIET ---
Dietitian consult for calorie count. Nursing is aware and will initiate the calorie count. Following daily.
--- NOTE | 2024-05-09 13:37 | WPDGIPROGNO ---
Progress Note: A&P Assessment and Plan (1) Esophageal stricture: Code(s): K22.2 - Esophageal obstruction Status: Acute Assessment and Plan: dilated yesterday, swallowing better also previous gastric surgery and that is probably contributing to her symptoms ppi daily diet as tolerated will follow as needed (2) Gastritis: Code(s): K29.70 - Gastritis, unspecified, without bleeding Status: Acute (3) Adult failure to thrive: Code(s): R62.7 - Adult failure to thrive Status: Acute (4) Orthostatic hypotension: Code(s): I95.1 - Orthostatic hypotension Status: Acute (5) History of [place] I operation: Code(s): Z98.890 - Other specified postprocedural states Status: Acute Subjective Date/time seen: 05/09/24 13:37 Interval history: egd yesterday with esophageal dilation she feels that can eat more with less regurgitation at bedside Review of Systems Review of Systems: All systems reviewed & are unremarkable except as noted in HPI and below Exam Const: General: comfortable and no acute distress Other: chronically ill appearing HENMT: Face/Nose/Sinus: Normal nares present Eyes: General: appearance normal, both eyes and all related structures Neck: Neck: no JVD Resp: Auscultation: clear to auscultation bilaterally Cardio: Rate: regular rate Rhythm: regular rhythm GI: Inspection: non-distended GI Palp: Yes Soft to palpation and No Tenderness to palpation present (GI) Auscultation: normal bowel sounds Skin: General skin exam: normal color Neuro: Speech: normal speech Motor exam (neuro): 5/5 motor strength present throughout Extrem: General: normal to inspection Psych: Mental Status: mental status grossly normal Objective Data Vital Signs Vital Signs: Vital Signs - 24 hr 05/08/24 14:09 05/08/24 14:19 05/08/24 14:29 Temperature Pulse Rate 92 88 88 Respiratory Rate 17 20 20 Blood Pressure 155/71 H 172/88 H 188/96 H Pulse Oximetry 100 100 100 Oxygen Delivery Room Air Room Air Room Air 05/08/24 16:04 05/08/24 20:33 05/08/24 20:00 Temperature 97.3 F L Pulse Rate 99 105 H Respiratory Rate 18 Blood Pressure 180/85 H Pulse Oximetry 98 Oxygen Delivery Room Air 05/08/24 20:00 11/07/24 00:00 05/09/24 04:00 Temperature Pulse Rate 105 H 106 H 101 H Respiratory Rate Blood Pressure Pulse Oximetry Oxygen Delivery 05/09/24 05:47 05/09/24 08:29 05/09/24 08:05 Temperature 97.2 F L Pulse Rate 103 H 104 H Respiratory Rate 18 Blood Pressure 144/68 H Pulse Oximetry 100 Oxygen Delivery Room Air 05/09/24 11:15 05/09/24 11:15 05/09/24 11:16 Temperature Pulse Rate 106 H 105 H 107 H Respiratory Rate Blood Pressure 176/91 H 158/93 H 91/62 L Pulse Oximetry Oxygen Delivery 05/09/24 12:05 Temperature Pulse Rate 103 H Respiratory Rate Blood Pressure Pulse Oximetry Oxygen Delivery Intake/Output Intake/Output: Intake & Output 05/06/24 05/07/24 05/08/24 05/09/24 23:59 23:59 23:59 23:59 Intake Total 1000 1090 370 Output Total 350 Balance 650 1090 370 Meds/Results Medications: Active Medications Generic Name Dose Route Start Last Admin Trade Name Freq PRN Reason Stop Dose Admin Acetaminophen 1,000 mg 05/07/24 21:21 05/08/24 23:58 Acetaminophen 500 Mg Tablet PO 1,000 mg Q6H PRN Administration PAIN RATED 1-3 Amitriptyline HCl 100 mg 05/07/24 22:10 05/08/24 20:15 Amitriptyline Hcl 25 Mg Tablet PO 100 mg HS JOHANNY Administration Benzocaine 1 lozenge 05/08/24 18:44 Benzocaine/Menthol (*Bkc) 18 Ea Lozenge PO PRN PRN Sore Throat/tongue Cyclosporine 1 drop 05/08/24 21:00 05/08/24 20:16 Cyclosporine 0.4 Ml Ophth Solution EACH EYE 1 drop HS JOHANNY Administration Sodium Chloride 1,000 mls @ 75 mls/hr 05/09/24 12:50 Normal Saline Iv IV CONT .[id number] JOHANNY Levothyroxine Sodium 100 mcg 05/08/24 06:30 05/09/24 05:01 Levothyroxine Sodium 100 Mcg Tablet PO 100 mcg DAILY@0630 JOHANNY Administration Liothyronine Sodium 15 mcg 05/08/24 09:00 05/09/24 08:27 Liothyronine Sodium 5 Mcg Tablet PO 15 mcg DAILY JOHANNY Administration Midodrine 5 mg 05/08/24 09:00 05/09/24 12:34 Midodrine Hcl 2.5 Mg Tablet PO 5 mg TID JOHANNY Administration Ondansetron HCl 4 mg 05/07/24 23:23 05/08/24 10:27 Ondansetron Inj 4 Mg/2 Ml Vial IV PUSH 4 mg Q4H PRN Administration Nausea And Vomiting Oxycodone HCl 10 mg 05/08/24 11:13 Oxycodone Hcl (*Crx) 5 Mg Tab Ir PO Q6HR PRN Pain 4-10 Pantoprazole Sodium 40 mg 05/07/24 21:30 05/09/24 08:27 Pantoprazole 40 Mg Tablet PO 40 mg BID JOHANNY Administration Perflutren Lipid Microsphere 0 ml 05/08/24 10:37 Perflutren Lipid Microspheres 1.5 Ml Vial Diluted To 10 Ml Total Volume IV PUSH 05/11/24 10:38 ONCE PRN adequate visualization Protocol Radiology Results: ITS Impressions Chest X-Ray 05/07/24 17:37 IMPRESSION: No acute cardiopulmonary pathology. 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 Head/Cervical Spine/Facial Bones CT 05/07/24 18:51 IMPRESSION: Degenerative disease, without acute displaced cervical spine fracture. No acute or subacute facial bone fracture
[2024-05-09] MEDS: SODIUM CHLORIDE 0.9% IV 1,000 ML 75 ML IV CONT (14:32)
[2024-05-09] MEDS: MIDODRINE HCL 10 MG TABLET PO (16:56)
[2024-05-09] MEDS: cycloSPORINE 0.4 ML OPHTH SOLUTION 1 DROP EACH EYE (20:26)
[2024-05-09] MEDS: ACETAMINOPHEN 500 MG TABLET 1000 MG PO (20:27)
[2024-05-09] MEDS: MELATONIN 3 MG TABLET PO (23:08)
[2024-05-10] VITALS (23 sets, daily range): BP systolic 121–186; BP diastolic 62–125; PULSE 103–120; RESP 18–28; TEMP 35.9–36.7; O2SAT 38–100
[2024-05-10] MEDS: SODIUM CHLORIDE 0.9% IV 1,000 ML 75 ML IV CONT (05:36)
[2024-05-10] MEDS: LEVOTHYROXINE SODIUM 100 MCG TABLET PO (05:36)
--- NOTE | 2024-05-10 08:33 | P.PNIM_ITS ---
Progress Note: A&P Assessment and Plan (1) Acute respiratory distress: Code(s): R06.03 - Acute respiratory distress Status: Acute Assessment and Plan: unknown cause ABG shows respiratory acidosis with hypoxia, patient placed on high-flow 15 L 20 mg IV Lasix given Fletcher catheter CTA PE protocol pending results BiPAP as needed (2) Orthostatic hypotension: Code(s): I95.1 - Orthostatic hypotension Status: Acute Assessment and Plan: - Unclear etiology. - Possibly cardiac vs neuro vs meds vs other. - Orthostatic vitals +ve in the ER and on 01/11/2024 - CT head negative for acute. - ECHO ordered. pending - PT eval and treatment. cancer at this time due to severe hypotension - Fall precautions. midodrine increased (3) Generalized weakness: Code(s): R53.1 - Weakness Status: Acute Assessment and Plan: - Possibly related to above. - Mgt as above. - PT eval and teatment. - Fall precautions. (4) Adult failure to thrive: Code(s): R62.7 - Adult failure to thrive Status: Acute Assessment and Plan: - Possibly related to poor PO intake due to food regurgitation. - Scheduled for EGD later today. - Butter Wrapper consult post EGD. - Nutritional supplements. - Encourage with meals. patient may benefit Megace (5) Frequent falls: Code(s): R29.6 - Repeated falls Status: Acute Assessment and Plan: - Possibly related to dizziness. - Mgt as # 1. - Fall precautions. - PT eval and treatment. (6) Regurgitation of food: Code(s): R11.10 - Vomiting, unspecified Status: Acute Assessment and Plan: - Hx of peptic stenosis. - EGD on 05/08/2024 with esophageal dilation regular diet (7) Subdural hematoma: Code(s): S06.5XAA - Traumatic subdural hemorrhage with loss of consciousness status unknown, initial encounter Status: Acute Assessment and Plan: - Stable. - Avoid anticoagulants and anti-platelets for now. (8) TYRELL (acute kidney injury): Code(s): N17.9 - Acute kidney failure, unspecified Status: Acute Assessment and Plan: - Cr 1.3. - Appears baseline. - Monitor closely for now. (9) Esophageal stricture: Code(s): K22.2 - Esophageal obstruction Status: Acute Assessment and Plan: - Hx of peptic stenosis. - 05/08/2024 EGD with esophageal dilation - Appreciate GI assistance. (10) GERD (gastroesophageal reflux disease): Code(s): K21.9 - Gastro-esophageal reflux disease without esophagitis Status: Acute Assessment and Plan: - Resume protonix with diet. Plan rapid response on 05/10 for acute respiratory distress after being placed on bedpan unclear etiology at this time Time Spent With Patient Time: Includes review of chart, time spent family, consulting teams and nursing. Vital signs were reviewed and they are stable. His medications will be reviewed and resumed as appropriate. Findings and treatment plan were discussed with the patient. Questions were solicited and answered to satisfaction. Care plan was discussed with nursing. over 55 minutes Subjective Date/time seen: 05/10/24 08:33 Interval history: She reports falling about 2 weeks ago a transferred to [facility] for subdural hematoma mgt. Pt had another fall about 3 days ago and head CT remained the same, with head CT on this admission also same post fall. She also reports bad taste on her mouth and episodes of food regurgitation. She had an EGD with dilatation about 6 months ago. EGD 05/08/2024 with dilation of esophagus, patient states that she feels her swallowing is better, echocardiogram results pending, severe orthostatic hypotension yesterday, gentle IV hydration, Ensure shakes, calorie count echocardiogram with normal EF rapid response called patient being extremely hypoxic after being placed on bedpan SpO2 of 36%, per the nurse patient was playing paste on non-rebreather with improvement. On exam patient is tachypneic, Lung sounds are coarse. A&O x1, ABG shows respiratory acidosis with hypoxia. Patient given Fletcher and Lasix. No changes in EKG, chest x-ray does not explain the acute decline. CT PE protocol ordered. Review of Systems Review of Systems: generalized weakness, recurrent falls, dysphagia, regurgitation. All systems reviewed & are unremarkable except as noted in HPI and below Exam Narrative: lying in stretcher. Const: General: comfortable, no acute distress, well developed, alert, awake and thin Nutritional Appearance: thin Orientation/consciousness: patient oriented x3 HENMT: Head: normal to inspection, normocephalic and atraumatic Ears: hearing grossly normal bilaterally Face/Nose/Sinus: normal facial exam Face and sinus: normal facial exam Eyes: General: appearance normal, both eyes and all related structures Pupils: Equal, round and reactive pupils present EOM: EOMs intact bilaterally Neck: Neck: full ROM, no lymphadenopathy and no JVD Thyroid: thyroid normal Lymphatic: no lymphadenopathy noted Resp: Effort & Inspection: normal respiratory effort and able to speak in complete sentences Auscultation: clear to auscultation bilaterally Cardio: Jugular venous distension: no JVD Rate: regular rate Rhythm: regular rhythm Heart sounds: S1 normal heart sound present and S2 normal heart sound present : General: Yes deferred Skin: Rashes: no rashes Wounds: no wounds Neuro: General: patient oriented x3, CN's II-XI intact bilaterally and Unable to assess gait Cranial nerves: Yes CN's II-XII intact bilaterally and Yes Equal, round and reactive pupils present Cognition (Neuro): normal cognition Speech: normal speech Gait exam (Neuro): Normal gait present and Unable to assess gait Motor exam (neuro): 5/5 motor strength present throughout Extrem: General: normal to inspection, full ROM, no joint enlargement and no pedal edema Other: HEENT: [place] to Right occipital region, dried laceration to left occipital region, PERRL, EOM, moist mucus membranes. Neck: Supple. Lungs: Clear bilaterally. Heart: RRR, no murmurs. Abdomen: Soft, non-tender, non-distended, +ve bowel sounds. Extremities: Warm and dry with no lesions. Neuro: Well oriented. No focal deficits noted. Psych: Pleasant and co-operative. Objective Data Vital Signs Vital Signs: Vital Signs - 24 hr 05/09/24 11:15 05/09/24 11:15 05/09/24 11:16 Temperature Pulse Rate 106 H 105 H 107 H Respiratory Rate Blood Pressure 176/91 H 158/93 H 91/62 L Pulse Oximetry Oxygen Delivery 05/09/24 12:05 05/09/24 13:55 05/09/24 16:05 Temperature 97.7 F Pulse Rate 103 H 103 H 105 H Respiratory Rate 17 Blood Pressure 182/81 H Pulse Oximetry 98 Oxygen Delivery 05/09/24 21:06 05/09/24 20:00 05/09/24 20:00 Temperature 97.9 F Pulse Rate 108 H 108 H 93 Respiratory Rate 18 18 Blood Pressure 142/89 H Pulse Oximetry 97 97 Oxygen Delivery Room Air 05/10/24 00:00 05/10/24 04:00 05/10/24 05:32 Temperature 97 F L Pulse Rate 106 H 103 H 109 H Respiratory Rate 20 Blood Pressure 181/87 H Pulse Oximetry 100 Oxygen Delivery Intake/Output Intake/Output: Intake & Output 05/07/24 05/08/24 05/09/24 05/10/24 23:59 23:59 23:59 23:59 Intake Total 1000 1090 1030 1100 Output Total 350 Balance 650 1090 1030 1100 Meds/Results Medications: Active Medications Generic Name Dose Route Start Last Admin Trade Name Freq PRN Reason Stop Dose Admin Acetaminophen 1,000 mg 05/07/24 21:21 05/09/24 20:27 Acetaminophen 500 Mg Tablet PO 1,000 mg Q6H PRN Administration PAIN RATED 1-3 Amitriptyline HCl 100 mg 05/07/24 22:10 05/08/24 20:15 Amitriptyline Hcl 25 Mg Tablet PO 100 mg HS JOHANNY Administration Benzocaine 1 lozenge 05/08/24 18:44 Benzocaine/Menthol (*Bkc) 18 Ea Lozenge PO PRN PRN Sore Throat/tongue Cyclosporine 1 drop 05/08/24 21:00 05/09/24 20:26 Cyclosporine 0.4 Ml Ophth Solution EACH EYE 1 drop HS JOHANNY Administration Sodium Chloride 1,000 mls @ 75 mls/hr 05/09/24 12:50 05/10/24 05:36 Normal Saline Iv IV CONT 75 mls/hr .[id number] JOHANNY Administration Levothyroxine Sodium 100 mcg 05/08/24 06:30 05/10/24 05:36 Levothyroxine Sodium 100 Mcg Tablet PO 100 mcg DAILY@0630 JOHANNY Administration Liothyronine Sodium 15 mcg 05/08/24 09:00 05/09/24 08:27 Liothyronine Sodium 5 Mcg Tablet PO 15 mcg DAILY JOHANNY Administration Melatonin 3 mg 05/09/24 22:35 05/09/24 23:08 Melatonin 3 Mg Tablet PO 3 mg HS JOHANNY Administration Midodrine 10 mg 05/09/24 17:00 05/09/24 16:56 Midodrine Hcl 10 Mg Tablet PO 10 mg TID JOHANNY Administration Ondansetron HCl 4 mg 05/07/24 23:23 05/08/24 10:27 Ondansetron Inj 4 Mg/2 Ml Vial IV PUSH 4 mg Q4H PRN Administration Nausea And Vomiting Oxycodone HCl 10 mg 05/08/24 11:13 Oxycodone Hcl (*Crx) 5 Mg Tab Ir PO Q6HR PRN Pain 4-10 Pantoprazole Sodium 40 mg 05/07/24 21:30 05/09/24 16:56 Pantoprazole 40 Mg Tablet PO 40 mg BID JOHANNY Administration Perflutren Lipid Microsphere 0 ml 05/08/24 10:37 Perflutren Lipid Microspheres 1.5 Ml Vial Diluted To 10 Ml Total Volume IV PUSH 05/11/24 10:38 ONCE PRN adequate visualization Protocol Radiology Results: ITS Impressions Chest X-Ray 05/07/24 17:37 IMPRESSION: No acute cardiopulmonary pathology. 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 Head/Cervical Spine/Facial Bones CT 05/07/24 18:51 IMPRESSION: Degenerative disease, without acute displaced cervical spine fracture. No acute or subacute facial bone fracture Quality VTE Prophylaxis VTE prophylaxis: mechanical ordered Hospitalist MIPS Advance Care Plan I have confirmed that the patient's Advanced Care Plan is present, code status is documented, or surrogate decision maker is listed in patient medical record.: Yes
[2024-05-10] MEDS: PANTOPRAZOLE 40 MG TABLET PO (09:21)
[2024-05-10] MEDS: LIOTHYRONINE SODIUM 5 MCG TABLET 15 MCG PO (09:22)
[2024-05-10] MEDS: MIDODRINE HCL 10 MG TABLET PO (09:22)
[2024-05-10 10:19] LABS: Anion Gap 7 mmol/L (4-12); Blood Urea Nitrogen 9 mg/dL (7-17); Calcium 8.6 mg/dL (8.4-10.2); Carbon Dioxide 25 mmol/L (22-30); Chloride 96 mmol/L (98-107); Estimated CRCL calculation 41 ml/min; Estimated Glomerular Filt Rate > 60; Glucose 125 mg/dL (65-110); Potassium 3.1 mmol/L (3.4-5.0); Sodium 128 mmol/L (137-145)
[2024-05-10 10:37] LABS: Alveolar/Arterial O2 Gradient 593.4 mmHg; Base Excess ABG -5.5 mEq/l (+/-2.0); Carboxyhemoglobin 0.6 % THb (0-2.0); Fractional Inspired Oxygen 100 %; HCO3 ABG 22.4 mEq/l (22.0-26.0); Oxygen Content ABG 16.9 %vol (16.0-22.0); Oxyhemoglobin 88.1 % THb (90.0-100.0); PO2 ABG 65.6 mmHg (80.0-100.0); PO2 FiO2 Ratio Arterial Blood 0.66 %; Reduced Hemoglobin 11.3 %THb (0-5.0); Total Hemoglobin 13.6 g/dL (12.0-18.0)
--- NOTE | 2024-05-10 10:39 | ECG_ITS ---
Test Date: 2024-05-10 10:58:16 Measurements Intervals [place] Rate: 85 P: 66 SD: 219 QRS: -67 QRSD: 185 T: 95 QT: 400 QTc: 476 Interpretive Statements ATRIAL SENSE- ELECTRONIC VENTRICULAR PACEMAKER SUPRAVENTRICULAR BIGEMINY BASELINE WANDER- I, II, AVR, AVL, V1-V6 NO FURTHER INTERPRETATION IS POSSIBLE ABNORMAL ECG Compared to ECG 05/07/2024 17:21:53 SUPRAVENTRICULAR BIGEMINY NOW PRESENT Electronically Signed On 05-10-2024 11:09:37 CLIENT ACCOUNT ASSISTANT by Ernie Dye D.O.
[2024-05-10 10:41] LABS: Device NON-REBREATHER MASK; Site Drawn LEFT BRACHIAL; pH ABG 7.236 (7.350-7.450)
[2024-05-10 10:56] LABS: Basophils Percent Auto 0.1 % (0.2-1.2); Eosinophils Percent Auto 0.1 % (0-4.4); Hematocrit 40.9 % (37.0-47.0); Hemoglobin 13.3 g/dL (12.0-15.0); Immature Granulocyte Absolute 0.11 K/mm3 (0.00-0.031); Immature Granulocyte Percent A 0.8 % (0-0.5); Lymphocytes Absolute Auto 0.82 K/mm3 (0.9-3.2); Lymphocytes Percent Auto 5.7 % (18.3-44.2); Mean Corpuscular HGB Conc 32.5 g/dl (32-36); Mean Corpuscular Volume 92.3 fl (80-100); Monocytes Absolute Auto 1.1 K/mm3 (0.1-0.6); Monocytes Percent Auto 7.3 % (2.6-8.5); Neutrophils Absolute Auto 12.5 K/mm3 (1.3-6.7); Platelet Count Result 163 k/mm3 (150-375); Red Blood Count 4.43 M/mm3 (4.2-5.4); Red Cell Distribution Width 13.2 % (11.5-14.5); White Blood Count 14.5 K/mm3 (4.5-10.0)
[2024-05-10] MEDS: FUROSEMIDE INJ 40 MG/4 ML VIAL 20 MG IV PUSH (11:01)
[2024-05-10 11:05] LABS: Anion Gap 9 mmol/L (4-12); Blood Urea Nitrogen 10 mg/dL (7-17); Calcium 8.4 mg/dL (8.4-10.2); Carbon Dioxide 23 mmol/L (22-30); Chloride 95 mmol/L (98-107); Estimated CRCL calculation 36 ml/min; Estimated Glomerular Filt Rate > 60; Glucose 285 mg/dL (65-110); Potassium 3.2 mmol/L (3.4-5.0); Sodium 127 mmol/L (137-145)
--- NOTE | 2024-05-10 11:49 | PC.NURSE ---
Patient arrived to IMU room 210 by bed at 1142, bedside report given by MAL Dominguez. All questions answered and plan of care reviewed.
--- NOTE | 2024-05-10 12:07 | PC.NURSE ---
This patient, Emma Villalobos, was transferred to [facility] on 05/10/24 at 1145. Personal belongings sent with patient. Bedside report given to Yarelis Nicholson RN. Appropriate documentation sent with patient. Family updated on transfer.
--- NOTE | 2024-05-10 12:44 | PC.NURSE ---
At 1233, patient anxious on bipap and requesting it be removed. Bipap removed per patient request and 15L NC placed with bubbler. Patient appears comfortable with oxygen saturations at 100%. LOAD TEST MECHANIC Anastasia updated and made aware. Respiratory therapy updated on care plan. RN to continue to monitor oxygen saturations.
[2024-05-10] MEDS: KCL 20 MEQ/SW 100 ML 100 ML 50 MEQ IVPB (12:59)
--- NOTE | 2024-05-10 13:28 | PCNFU ---
Nutrition Follow-Up Complete: Inadequate energy intake related to NPO status as evidenced by diet order goal: diet orders Patient is progressing towards goal. Pt current nutrition is Regular with Nutritional Ice Cream TID Last recorded weight is 50.4 kg, no new weight to report. Bowel Motility: +BM reported 05/05 Labs Reviewed:Glu 174, Cr 2.10, BUN 31, GFR 23, Alb 3.4 Meds Noted: Synthroid, Protonix Skin: WNL Additional Notes: Patient has calorie count ordered. 05/09 Lunch approx: 200 kcals, 05/09 Dinner: 400 kcals. 05/10 Breakfast patient was eating breakfast at the time of assessment. Working on fruit cup, eating 1/2 oatmeal, eggs, potatoes. She prefers the nutritional ice cream over the ensure drink. Rapid Response was called mid morning and patient was transferred to IMU. Status change with 15 L Nasal Canula. Will continue to monitor. Monitor for diet order, intake, wt, labs. Follow up in 3 days
[2024-05-10] MEDS: AZITHROMYCIN 500 MG/NS 250 ML 500 MG/250 ML BAG 250 MG IVPB (15:24)
[2024-05-10 16:20] LABS: Add Urine Microscopic? YES; Appearance Urine Clear (Clear); Bacteria Urine None Seen /hpf; Bilirubin Urine Negative (Negative); Blood Urine 2+ (Negative); Color Urine Yellow (Yellow); Glucose Urine UA Negative (Negative); Ketones Urine Negative (Negative); Leukocyte Esterase Ur Negative LEU/UL (Negative); Need Manual Microscopic Reviewed; Nitrate Urine Negative (Negative); Non Pathogenic Casts 0-2; Protein Urine Trace mg/dL (Negative); Specific Grav Ur 1.037 (1.001-1.035); Squamous Epithelial Cell Urine None Seen /hpf (Few); Urobilinogen Urine 0.2 mg/dL (<2.0); WBC Urine 0-5 /hpf (0-3)
--- NOTE | 2024-05-10 17:45 | PC.NURSE ---
At 1705, this RN went to patients room to check on patient, flush antibiotics and administer dose of Protonix. Patient daughter and at bedside. Upon arrival into patients room noted to be feeding patient, patient was restless and picking food off of her plate with her hands. began to hold a cup of cranberry juice up to patient mouth and told her to drink . The patient took a sip then started turning blue and did not swallow the liquid. Both RN and daughter told to stop offering food. Oxygen saturations dropped to 53% on the monitor, patient noted to be agonally breathing. Another RN was called in to help. This RN confirmed with family that patient is a DNR. Patient pronounced at 1710. Apical pulses auscultated for a full minute x2 nurses, carotid pulse absent and no respiratory efforts noted. Patient PEA with pacer spikes noted on monitor. Charge nurse notified and MD Dr. Mead notified of patients passing. updated and spoke with family.
--- NOTE | 2024-05-14 13:16 | PM.DDS ---
Discharge Summary Date and Time Date of : 05/10/24 Time of : 17:10 Provider Pronounced By: 2 RNs Name of First RN That Pronounced: Yarelis Valdes RN Name of Second RN That Pronounced: Yarelis Choi RN Probable Cause of Probable Cause of : Acute respiratory distress and aspiration of food and liquid Summary Hospital Course: 84-year-old female with past medical history significant for esophageal stricture, dysphagia, subdural hematoma, hypothyroidism, orthostatic hypotension. patient presents to the emergency room for a 2nd time after having a fall at home patient has been very weak, has had lightheadedness, has been regurgitate, states a weird taste in her mouth, has had poor per orally intake. Preliminary workup ER was significant for creatinine of 1.3 patient's orthostatic were significant in the emergency room. Patient denies any fevers, rigors, chills. Patient has been admitted for further evaluation management and treatment. 05/08/2024 the patient had a echocardiogram which showed normal EF. Patient had a history of esophageal strictures and was having trouble swallowing food so GI was consulted and on 05/08/2024 they did the EGD with esophagus dilation, at the patient states that she was swelling better afterwards. On 05/09/2024 the patient has severe orthostatic hypotension was given a fluid bolus with IV fluids started, at diet with calorie count. Patient had general complains of weakness, no worse than when she came in. On 05/10/2024 in the morning the patient was a rapid response for acute respiratory distress. Per nursing and aides the patient was stable and she requested to be placed on the bedpan and while rolling onto the bed gomez she went to respiratory distress, turning blue with pulse ox in the 30s no loss of pulse. Patient was placed on non-rebreather. Chest x-ray shows no acute process, ABG showed hypoxia, patient was given 20 mg of Lasix due to coarse lung sounds. Continue cause of respiratory distress patient had a CTA PE which was negative for pulmonary embolism. UA was ordered and pending. Due to no known cause of respiratory distress patient was started on antibiotics for possible pneumonia. The patient did try BiPAP however she did not like it. The nurse was able to titrate down oxygen once the patient arrived to IMU. at bedside was updated, son over the phone was updated. While patient's was feeding her dinner when she became agitated started turning blue. The patient was a DNR DNI, lost her pulse. No other interventions were taken, patient was pronounced by 2 nurses at 1710. Additional Data Confirmation of as documented by pronouncing clinician: Pupillary Reflex, Palpable Pulses, Response to Stimuli, Heart Tones and Breath Sounds Name of Provider Notified: Dr. Flanagan Time Provider Notified: 17:15 Provider Requests Autopsy: No [employer] Consultant Notified: Yes Date [facility] Notified of : 05/10/24 Time [facility] Notified of : 17:35
[2024-05-15 17:43] LABS: Adenovirus DNA Not Detected (Not Detected); Chlamydophila pneumoniae Not Detected (Not Detected); Coronavirus 229E Not Detected (Not Detected); Coronavirus HKU1 Not Detected (Not Detected); Coronavirus NL63 Not Detected (Not Detected); Coronavirus OC43 Not Detected (Not Detected); Human Metapneumovirus Not Detected (Not Detected); Human Parainfluenza Virus 1 Not Detected (Not Detected); Human Parainfluenza Virus 2 Not Detected (Not Detected); Human Parainfluenza Virus 3 Not Detected (Not Detected); Human Parainfluenza Virus 4 Not Detected (Not Detected); Human RSV B Not Detected (Not Detected); Influenza A Not Detected (Not Detected); Influenza B Not Detected (Not Detected); Mycoplasma pneumoniae Not Detected (Not Detected); Rhinovirus/Enterovirus Not Detected (Not Detected)
== END 2024-05-10 17:10 | disposition expired | DRG 314 ==
LOC: ANHED 20:44 → ANH3MED 21:24 → ANHIMU 05-10 18:00 → ANH3MED 05-13 13:31 → ANHIMU 05-13 13:31
PROVIDERS: Internal Medicine Gastroenterology; Nurse Practitioner Gerontology; Admitting Provider Internal Medicine; Emergency Provider Physician Assistant; PCP Physician Assistant Medical; Visit Provider General Practice
PROC: 0DJ08ZZ Inspection of Upper Intestinal Tract, Via Natural or Artificial Opening Endoscopic (ICD-10-PCS; CPT 43235; principal; 2024-05-08 15:00)
DX: I95.9 Hypotension, unspecified (principal); J18.9 Pneumonia, unspecified organism; N17.9 Acute kidney failure, unspecified; Z68.1 Body mass index [BMI] 19.9 or less, adult; T17.990A Other foreign object in respiratory tract, part unspecified in causing asphyxiation, initial encounter; T17.920A Food in respiratory tract, part unspecified causing asphyxiation, initial encounter; K22.2 Esophageal obstruction; K21.9 Gastro-esophageal reflux disease without esophagitis; K29.70 Gastritis, unspecified, without bleeding; E03.9 Hypothyroidism, unspecified; R29.6 Repeated falls; R62.7 Adult failure to thrive; R06.03 Acute respiratory distress; R11.10 Vomiting, unspecified; Z20.822 Contact with and (suspected) exposure to COVID-19; S06.5XAD Traumatic subdural hemorrhage with loss of consciousness status unknown, subsequent encounter; Z95.0 Presence of cardiac pacemaker
CPT/HCPCS: 36415; 36600; 70450; 70486; 71045; 71275; 72125; 80048; 80053; 81001; 81003; 82375; 82805; 83050; 83735; 83880; 84439; 84443; 84480; 84484; 85018; 85025; 85610; 85730; 87633; 87637; 93005; 93306; 96361; 96374; 99285; A9270; C1726; G0378; J0456; J0696; J1940; J2003; J2405; J2704; J3480; J7030; J7120; Q9967